=== PATIENT | male | born 1975 ===

== ENCOUNTER 2020-06-20 08:04 | Outpatient (REF) | payer BC, SELFPAY | END 2020-06-20 08:05 | disposition home or self-care (01) | LOC: HO.LAB 08:04 | PROVIDERS: PCP Internal Medicine; Visit Provider Internal Medicine | DX: Z13.89 Encounter for screening for other disorder (principal) ==

== ENCOUNTER 2020-06-22 06:53 | Outpatient (REF) | payer BC, SELFPAY ==
[2020-06-22 11:46] LABS: Hematocrit 42.4 % (42-52); Hemoglobin 14.5 g/dl (14.0-18.0); Mean Corpuscular HGB Conc 34.2 g/dl (31.0-36.0); Mean Corpuscular Hemoglobin 29.5 pg (27.0-33.0); Mean Corpuscular Volume 86.4 fL (80-98); Mean Platelet Volume 10.8 fL (9.4-12.4); Platelet Count 233 X10*3/uL (160-400); Red Blood Count 4.91 X10*6/uL (4.60-5.80); Red Cell Distribution Width 12.8 % (11.0-16.0); White Blood Count 4.1 X10*3/uL (4.8-10.8)
[2020-06-22 11:50] LABS: Glucose Urine UA NEG (NEG); Leukocyte Esterase Urine NEG (NEG); Nitrite Urine NEG (NEG); PH 6.5 (5.0-8.0); Urine Blood NEG (NEG); Urine Ketones NEG (NEG); Urine Protein NEG (NEG-TRACE)
[2020-06-22 11:57] LABS: Appearance Urine CLEAR; Color Urine YELLOW
[2020-06-22 12:11] LABS: Alanine Aminotransferase 30 U/L (0-40); Albumin Level 4.8 g/dL (3.5-5.0); Alkaline Phosphatase 47 U/L (39-117); Anion Gap 14 (12-20); Aspartate Amino Transferase 21 U/L (5-37); Bilirubin Total 0.4 mg/dL (0.0-1.0); Blood Urea Nitrogen 15 mg/dL (9-16); Calcium 9.5 mg/dL (8.4-10.2); Carbon Dioxide 29 mmol/L (22-29); Chloride 103 mmol/L (96-108); Cholesterol 199 mg/dL; Estimated Glomerular Filt Rate > 60; Glucose Fasting 101 mg/dL (60-99); HDL Cholesterol 58 mg/dL; LDL Cholesterol Calculated 120 mg/dl; Potassium 4.8 mmol/L (3.3-5.1); Sodium 141 mmol/L (135-145); Total Protein 7.4 g/dL (6.5-8.0); Triglycerides 108 mg/dL
[2020-06-22 12:15] LABS: TSH reflex Free T4 2.24 uIU/mL (0.32-4.0)
[2020-06-22 12:43] LABS: RBC Urine 0 /HPF (0); WBC Urine 0 /HPF (0-4)
== END 2020-06-22 06:54 | disposition home or self-care (01) ==
LOC: HO.HMGCLDS 06:53
PROVIDERS: PCP Internal Medicine; Visit Provider Internal Medicine
DX: Z00.00 Encounter for general adult medical examination without abnormal findings (principal); Z13.220 Encounter for screening for lipoid disorders; Z13.29 Encounter for screening for other suspected endocrine disorder; Z13.1 Encounter for screening for diabetes mellitus
CPT/HCPCS: 36415; 80053; 80061; 81001; 84443; 85027

== ENCOUNTER 2020-11-02 14:49 | Outpatient (REF) | payer BC, SELFPAY | END 2020-11-02 14:50 | disposition home or self-care (01) | LOC: HO.LAB 14:49 | PROVIDERS: PCP Internal Medicine; Visit Provider Internal Medicine | DX: Z20.822 Contact with and (suspected) exposure to COVID-19 (principal) | CPT/HCPCS: C9803; U0003; U0005 ==

== ENCOUNTER 2022-02-18 12:54 | Outpatient (REF) | payer BC, SELFPAY ==
[2022-02-18 15:05] LABS: Influenza A PCR POSITIVE (Negative); Influenza B PCR NEGATIVE (Negative); Resp Syncy Virus RNA Qual PCR NEGATIVE (Negative); SARS COV2 PCR INHOUSE NEGATIVE (Negative)
== END 2022-02-18 12:55 | disposition home or self-care (01) ==
LOC: HO.LAB 12:54
PROVIDERS: Visit Provider Internal Medicine
DX: Z20.822 Contact with and (suspected) exposure to COVID-19 (principal); R43.9 Unspecified disturbances of smell and taste
CPT/HCPCS: 0241U

== ENCOUNTER 2022-12-19 09:59 | Outpatient (AMB) | payer BC, SELFPAY ==
[2022-12-19 10:07] VITALS: BP 116/80; PULSE 64; BMI 28.3
--- NOTE | 2022-12-19 10:07 | A.OFFVIS_ITS ---
Intake Vital Signs 12/19/22 10:07 Height 5 ft 7 in Weight 180 lb 12.465 oz BMI 28.3 BP 116/80 Blood Pressure Location Lt brachial Position Sitting Pulse 64 Intake Visit Reasons: Colonoscopy Screening Intake Note: Patient presents to in office visit today as a new patient for colonoscopy screening. CC: Patient reports occasional seeing white substance in his stools and occasional acid reflux and heartburn. Denies other GI symptoms today. [employer] Consultant Required: No Accompanied by: Self / Same As Patient Allergies aspirin [ASPIRIN] Allergy (Unknown, Verified 12/19/22 10:10) HIVES [place] And Derivatives Adverse Reaction (Severe, Verified 12/19/22 10:12) Hives juliana Adverse Reaction (Severe, Verified 12/19/22 10:12) Hives HPI Colonoscopy Screening HPI Details 47 year old? male here today for pre col onoscopy screening.? Patient was sent to us by his PCP.? This is his first colonoscopy screening.? Patient denies any gastrointestinal symptoms in the past or at present.? Patient reports that he has been moving his bowels well, however occasionally few times a year for the last 15 years or so he has defecated white pebble like fecal material. Patient denies melena, hematochezia, unintentional weight loss or ribbon like stools. Denies any personal or family history of gastrointestinal disease, colon polyps, or cancer.? Denies history of difficulty with sedation or anesthesia in the past.? Negative for history of sleep apnea.? Denies any history of cardiac, renal, pulmonary, or hepatic disease.?? No history of infectious? diseases like hepatitis A, B, C, HIV or tuberculosis.? Patient is no t on any anticoagulation therapy. 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 Alcohol intake: current Alcohol intake frequency: 0-2 drinks per day Patient Tobacco Use Status: Never used Tobacco Current occupational status: employed Cognitive needs: No Hearing needs: No Vision needs: Yes Review of Systems Const Denies weight gain and Denies weight loss ENT Reports no additional complaints, Denies dysphagia and Denies odynophagia Card Reports no additional complaints Resp Reports no additional complaints GI Denies abdominal pain, Denies belching, Denies melena, Denies bloating, Denies change in bowel habits, Denies dysphagia, Denies excessive flatus, Denies dyspepsia, Reports heartburn (Occasional), Denies diarrhea, Denies loose stools, Denies nausea, Denies odynophagia and Denies vomiting Reports no additional complaints Musc Reports no additional complaints Neuro Reports no additional complaints Psych Reports no additional complaints Endo Reports no additional complaints Physical Exam Vital Signs: Last Vital Signs Pulse 64 12/19/22 10:07 BP 116/80 12/19/22 10:07 BMI result Body Mass Index 28.3 Const General: healthy appearing, no acute distress and well developed Nutritional Appearance: well nourished Orientation/consciousness: patient oriented x3 HEENT Head: Yes normal to inspection, Yes normocephalic and Yes atraumatic Face and sinus: Yes normal facial exam Mouth: Normal oral and palatal mucosa present Throat: Yes posterior oropharynx normal, Yes tonsils normal and Yes uvula midline Eyes General: appearance normal, both eyes and all related structures Neck Neck: Yes normal visual inspection, Yes full ROM and Yes trachea midline Thyroid: Thyroid normal Resp Effort & Inspection: normal respiratory effort, able to speak in complete sentences, no tracheal deviation and symmetric chest movement Auscultation: clear to auscultation bilaterally Cardio Rate: regular rate Heart sounds: S1 normal heart sound present and S2 normal heart sound present GI Inspection: Yes normal to inspection and No distended Palpation (GI): Soft to palpation, not firm, nontender and No hepatosplenomegaly present Auscultation: normal bowel sounds General: Yes no CVA tenderness Back/Spine/Pelvis Back: no CVA tenderness Skin General skin exam: elasticity normal, turgor normal and dry skin Neuro General: patient oriented x3 Psych Appearance: grossly normal Mental Status: mental status grossly normal Speech and movement: Normal speech and movement present Assessment & Plan Assessment & Plan (1) Screen for colon cancer: Code(s): Z12.11 - Encounter for screening for malignant neoplasm of colon (2) GERD (gastroesophageal reflux disease): Code(s): K21.9 - Gastro-esophageal reflux disease without esophagitis Qualifiers: Esophagitis presence: esophagitis presence not specified Qualified Code(s): K21.9 - Gastro-esophageal reflux disease without esophagitis Plan Patient denies any GI, cardiac or respiratory symptoms.? However patient does report occasional acid reflux depending on what he eats. Usually is controlled with diet. Denies any issues with anesthesia in the past.? Denies any history of sleep apnea.? No history infectious diseases in the past or present.? Not on any anticoagulation therapy.? No family or personal history of colon cancer or polyps.? Patient denies melena, hematochezia, unintentional weight loss or ribbon like stools.? Discussed at length the pre-procedure,? prep, diet & med ications as well as what to expect prior, during and after the procedure.?? Stressed the importance of good bowel prep. ?Recommended the use of Vaseline or Calmoseptine OTC & baby wipes with bowel movements to promote comfort.? ?Patient verbalizes understanding and agrees to plan of care.? He was given the opportunity to ask questions and all questions answered.? We will see him after the procedure.? Medications: New bisacodyl (Dulcolax (bisacodyl)) take 2 tabs at noon the day before your colonoscopy 10 mg (2 x 5 mg) PO ONCE 1 day 2 tabs 0RF Z12.11 - Encounter for screening for malignant neoplasm of colon polyethylene glycol 3350 (Miralax) As directed by gastroenterology department at [facility] 238 grams PO ONCE 238 grams 0RF Z12.11 - Encounter for screening for malignant neoplasm of colon Coding Level of Care Code New Pt Level 3 (40763) Diagnoses Screen for colon cancer Z12.11 Gastroesophageal reflux disease, unspecified whether esophagitis present K21.9 Esophagitis presence: esophagitis presence not specified Time Spent (min) 40 Comment 30 minutes spent with patient and additional 10 minutes spent reviewing his records
== END 2022-12-19 10:46 | disposition home or self-care (01) ==
PROVIDERS: PCP Internal Medicine; Visit Provider Nurse Practitioner Family
DX: Z01.818 Encounter for other preprocedural examination (principal); Z12.11 Encounter for screening for malignant neoplasm of colon; K21.9 Gastro-esophageal reflux disease without esophagitis
CPT/HCPCS: S0285

== ENCOUNTER → 2022-12-19 09:59 | Outpatient (BNVA) | payer BC, SELFPAY | PROVIDERS: PCP Internal Medicine; Visit Provider Nurse Practitioner Family ==

== ENCOUNTER 2023-01-23 11:15 | Outpatient (AMB) | payer BC, SELFPAY ==
[2023-01-23 11:17] VITALS: BP 110/70; PULSE 69; O2SAT 98; BMI 28.5
--- NOTE | 2023-01-23 11:17 | A.OFFPC_ITS ---
Vital Signs 01/23/23 11:17 Height 5 ft 7 in Weight 182 lb BMI 28.5 BP 110/70 Blood Pressure Location Lt brachial Position Sitting Pulse 69 Pulse Source Pulse Oximeter Pulse Oximetry (%) 98 Oxygen Delivery Method Room Air Intake Visit Reasons: Right arm pain Intake Note: Pt is here today for a sick visit. Pt c/o R shoulder blade pain that where it started and now the pain travels to his arm and elbow. Pt stated that he gets burning sensation in his arm.Pt also stated that he started having twitching in his R eye for 2 weeks now. Allergies aspirin [ASPIRIN] Allergy (Unknown, Verified 01/23/23 11:20) HIVES [place] And Derivatives Adverse Reaction (Severe, Verified 01/23/23 11:20) Hives juliana Adverse Reaction (Severe, Verified 01/23/23 11:20) Hives Medication List - Last Reconciled 01/23/23 by Debo Santos MD bisacodyl (Dulcolax (bisacodyl)) 10 mg (2 x 5 mg) PO ONCE 1 day cetirizine (Zyrtec) 10 mg PO DAILY PRN epinephrine (EpiPen 2-Rene) 0.3 mg (0.3 mL) IM Q10M PRN polyethylene glycol 3350 (Miralax) 238 grams PO ONCE Tobacco use date assessed: 01/23/23 Dental Screening Dental Screen Date: 01/23/23 Did you have a dental visit in the last 12 months?: Yes Did you have a dental problem in the last 6 months where you did not have access to dental care?: No Was dental information given to patient?: Patient has dentist HPI Right arm pain HPI0 Details Pt c/o R elbow pain, burning like sensation getting progressively worse for the last 2 months. Patient reports pain occasionally radiating to right shoulder and muscle tightness in lower neck and posterior right shoulder. Patient reports pain worse with right elbow movement but also at night. 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 How often do you have a drink containing alcohol?: 4 or more times a week 2. How many drinks containing alcohol do you have on a typical day when you are drinking?: 1 or 2 3. How often do you have six or more drinks on one occasion?: Never Total Score: 4 Review of Systems Const All systems reviewed & are unremarkable except as noted in HPI and below Reports no additional complaints Eyes Reports no additional complaints ENT Reports no additional complaints Card Reports no additional complaints Resp Reports no additional complaints GI Reports no additional complaints Reports no additional complaints Physical exam (Primary Care) Vital Signs: Last Vital Signs Pulse 69 01/23/23 11:17 BP 110/70 01/23/23 11:17 Pulse Ox 98 01/23/23 11:17 Oxygen Delivery Method Room Air 01/23/23 11:17 BMI result Body Mass Index 28.5 Tobacco/Smoking Status: Tobacco use Status Tobacco use date assessed 01/23/23 01/23/23 11:22 Patient Tobacco Use Status Never used Tobacco 01/23/23 11:22 Const General: no acute distress HENMT Face and sinus: Yes normal facial exam Resp Effort & Inspection: normal respiratory effort Auscultation: clear to auscultation bilaterally Cardio Rhythm: regular rhythm Heart sounds: S1 normal heart sound present and S2 normal heart sound present Extrem Other: Tenderness in soft tissue swelling on the right lateral elbow no erythema or warmth, decreased range of motion in the right elbow. Right shoulder with full range of motion, there is slight tenderness in right posterior supraspinatus area, deep tendon reflexes 2+ bilaterally motor strength 5/5 distal and proximal in both upper extremities Assessment and Plan Assessment & Plan (1) Right elbow tendinitis: Code(s): M77.8 - Other enthesopathies, not elsewhere classified Plan: Check x-ray treat with prednisone taper and refer for physical therapy. (2) Annual physical exam: Code(s): Z00.00 - Encounter for general adult medical examination without abnormal findings Plan: Patient will schedule an appointment for physical with fasting labs before (3) Hyperglycemia: Code(s): R73.9 - Hyperglycemia, unspecified Orders: Orders XR elbow RT 2V Today M77.8 - Other enthesopathies, not elsewhere classified Comprehensive [place]. Panel Fast Today Z00.00 - Encounter for general adult medical examination without abnormal findings UA w Microscopic Today Z00.00 - Encounter for general adult medical examination without abnormal findings Hemoglobin A1c Today R73.9 - Hyperglycemia, unspecified PT Evaluation and Treatment Today M77.8 - Other enthesopathies, not elsewhere classified Lipid Panel Today Z00.00 - Encounter for general adult medical examination without abnormal findings Complete Blood Count Auto Diff Today Z00.00 - Encounter for general adult medical examination without abnormal findings Medications: New prednisone 4 tabl qd x 3 days, then 3 tabl qd x3 days, then 2 tabl qd x 3 days, then 1 qd x3 days 30 tabs 0RF prednisone 4 orally daily; 30 tabs 0RF Coding Level of Care Code Est Pt Level 3 (66159) Diagnoses Right elbow tendinitis M77.8 Annual physical exam Z00.00 Hyperglycemia R73.9
== END 2023-01-23 12:13 | disposition home or self-care (01) ==
PROVIDERS: PCP Internal Medicine; Visit Provider Internal Medicine
DX: M77.8 Other enthesopathies, not elsewhere classified (principal); Z00.00 Encounter for general adult medical examination without abnormal findings; R73.9 Hyperglycemia, unspecified
CPT/HCPCS: 99213

== ENCOUNTER 2023-01-23 12:09 | Outpatient (REF) | payer BC, SELFPAY ==
--- NOTE | ~2023-01-23 | XR_ITS ---
EXAMINATION: XR ELBOW, RIGHT CLINICAL INFORMATION: Reason for Exam M77.8 - Other enthesopathies, not elsewhere classified COMPARISON: None. TECHNIQUE: Three views of the elbow FINDINGS: No acute fracture or dislocation. Triceps tendon enthesopathy. No joint effusion or soft tissue abnormality. XR/XR elbow RT 2V IMPRESSION: Triceps tendon enthesopathy.
== END 2023-01-23 12:10 | disposition home or self-care (01) ==
LOC: HO.HMGCX 12:09
PROVIDERS: PCP Internal Medicine; Visit Provider Internal Medicine
DX: M77.8 Other enthesopathies, not elsewhere classified (principal)
CPT/HCPCS: 73070

== ENCOUNTER 2023-04-17 13:00 | Outpatient (RCR) | payer BC, SELFPAY ==
--- NOTE | 2023-03-22 09:56 | MHC.OT.EP ---
[address] [phone] Occupational Therapy Plan of Care Patient Name: Felipe Bates Date of Evaluation: 03/22/23 Diagnosis: Right elbow tendinitis Pain Location: 09/26 right lateral elbow burning resting/general movement Pain Score: 7 Pain Scale Used: Numeric (0 - 10) Aggravating Factors: Bending/straightening, carrying bags, lifting Alleviating Factors: Relief w/ prednisone course, ibuprofen occasionally (does not feel like it makes a difference) Assessment: 48 yo male went to an urgent care visit 01/23/23 in his PCP office w/ c/o pain in right shoulder radiating down to arm. He reports hx of shoulder dislocation years ago and has been doing exercises for strengthening, but has noticed more cramping and pain over the past few months. At this time, he reports primary area of pain is in right lateral elbow. It is tender to palpate epicondyle and he has some discomfort in dorsal forearm and w/ resisted wrist extension. 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 Signs and symptoms are consistent w/ right lateral epicondylitis and I anticipate he will make good recovery w/ course of OT services. Frequency and Duration: The patient will be seen 2x/wk for 4 weeks Short Term Goals: Ind w/ CFB wear Ind w/ joint protection/activity modification techniques Ease w/ end range elbow movements Cream Dumper Goals: Right gross grasp >80lb w/ minimal pain Pt to report ease w/ work tasks (wearing CFB as needed) Pain free resting and w/ sleep Ind w/ progression of strengthening exercises Treatment Plan: Therapeutic Exercise Therapeutic Activity Home Exercise Program Splinting Patient Education Edema Control ADL Training Ultrasound Iontophoresis MHP Cold Packs Soft Tissue Mobilization Kinesiotaping CFB Night orthosis potentially Ionto w/ dexamethasone Electronically Signed By: JANEL Marks/Magdaleno CHT Please Sign and return to therapist. Thank you once again for your referral.
--- NOTE | 2023-04-19 11:36 | MHC.OT.DC ---
[address] [phone] F: [phone] Occupational Therapy Discharge Note Patient Name: Felipe Bates Provider: Debo Santos MD Diagnosis: Right elbow tendinitis Date of Surgery: Date of Evaluation: 03/22/23 Date of Discharge: 04/19/23 Treatments to Date: 8 Cancellations to Date: No Shows to Date: Discharge Status: Achieved Goals Improved Function Independent with HEP Discharge Summary: Felipe was referred to OT w/ acute right lateral epicondylitis. He has progressed well through therapy services and now reports only occasional pain w/ stressful movements/activities. He has good follow through w/ home exercises program, counter force brace wear and joint protection. No further outpatient services needed at this time, I anticipate he will continue to improve w/ time and mindfulness. Electronically Signed By: Jody Grant OTR/L CHT Reviewed/agree with student documentation: N/A Therapist: Please Sign and return to therapist, thank you for your referral.
== END 2023-04-19 11:36 | disposition home or self-care (01) ==
LOC: HO.OT 13:00
PROVIDERS: PCP Internal Medicine; Visit Provider Internal Medicine
DX: M77.8 Other enthesopathies, not elsewhere classified (principal)
CPT/HCPCS: 97033; 97110; 97140; 97165

== ENCOUNTER 2023-05-29 09:25 | Day surgery (SDC) | payer BC, SELFPAY ==
--- NOTE | 2023-05-25 11:42 | P.CONAN_ITS ---
Documented by User: Bianca Garcia NP 05/25/23 11:43 HPI - Anesthesia Eval Consult details Narrative: 48yo M for Colonoscopy [facility] Active Problems Active Problems: All Active Problems (Updated 01/23/23 @ 12:02 by Debo Santos MD) Right elbow tendinitis (Acute) Actinic keratoses (Acute) Upper respiratory tract infection (Acute) Vertigo (Acute) Hives (Acute) Hyperglycemia (Acute) Frequent headaches (Acute) Annual physical exam (Acute) Past Medical History Medical History Hives Hyperglycemia Frequent headaches Annual physical exam Family History Family History (Updated 01/23/23 @ 11:21 by Debra Purvis [facility]) Father Hyperlipidemia Colon polyps Mother HTN (hypertension) Paternal Uncle Cancer Surgical History Surgical History S/P appendectomy H/O vasectomy Social History Social History Household Members Other:: works as [employer] Housing: House Alcohol intake: current Alcohol intake frequency: 0-2 drinks per day Patient Tobacco Use Status: Former Tobacco user Are you DNR?: No Advance Directives: No Advance Directives Information Provided: Yes Current occupational status: employed Cognitive needs: No Hearing needs: No Vision needs: Yes Meds Allergies Allergy/AdvReac Type Severity Reaction Status Date / Time aspirin [ASPIRIN] Allergy Unknown HIVES Verified 01/23/23 11:20 [place] And Derivatives AdvReac Severe Hives Verified 01/23/23 11:20 juliana AdvReac Severe Hives Verified 01/23/23 11:20 Assessment and Plan Assessment Anesthesia Assessment: Chart Reviewed Documented by User: Oksana Peterson MD 05/29/23 09:49 [facility] Past Medical History Medical History Hives Hyperglycemia Frequent headaches Annual physical exam Family History Family History (Updated 01/23/23 @ 11:21 by MANDO Hardy) Father Hyperlipidemia Colon polyps Mother HTN (hypertension) Paternal Uncle Cancer Family history of problems with anesthesia: No Surgical History Surgical History S/P appendectomy H/O vasectomy History of Problems with Anesthesia: No Social History 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 History 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 Alcohol intake: current Alcohol intake frequency: 0-2 drinks per day Patient Tobacco Use Status: Former Tobacco user Are you DNR?: No Advance Directives: No Advance Directives Information Provided: Yes Current occupational status: employed Cognitive needs: No Hearing needs: No Vision needs: Yes Meds Allergies Allergy/AdvReac Type Severity Reaction Status Date / Time aspirin [ASPIRIN] Allergy Unknown HIVES Verified 01/23/23 11:20 [place] And Derivatives AdvReac Severe Hives Verified 01/23/23 11:20 juliana AdvReac Severe Hives Verified 01/23/23 11:20 Exam Airway Mallampati Class: II TM Dist: >3cm Neck ROM: Full Heart: rrr Lungs: cta Assessment and Plan Assessment Anesthesia Assessment: Anesthesia Plan Discussed Final Anesthetic Review Family History of Problems with Anesthesia: No History of Problems with Anesthesia: No NPO: Yes ASA Class: II Final Preanesthetic Review: No Changes in Pt Med Stat, Meds/Allgs Chart Reviewed and Consent Obtained/Reviewed Patient Risk: Low Procedure Risk: Low Anesthetic Plan Anesthetic Plan: MAC: Disposition: Standard PACU
[2023-05-29 09:28] VITALS: BP 146/94; PULSE 76; RESP 20; TEMP 36.1; O2SAT 97; BMI 27.7
--- NOTE | 2023-05-29 09:37 | MHC.SHP ---
Pre-Procedural Eval Section A - 24 Hr Update-Section A only Date of Service: 05/29/23 The patient is an INPATIENT: No The patient has been examined within 24 hours of the surgical procedure. The History & Physical has been completed within 30 days and I have reviewed it.: No Section B - Complete if H&P > 30 days Chief Complaint: Encounter for screening for malignant neoplasm of Relevant Family History (Specify if Yes): Yes Relevant Social History: None Present Medications: see Short Stay Collaborative assessment Medical History: Significant History (Hives Hyperglycemia Frequent headaches ) History of Previous Operations: Relevant previous surgery/procedure and date(s) (S/P appendectomy H/O vasectomy) Allergies: Allergies Allergy/AdvReac Type Severity Reaction Status Date / Time aspirin [ASPIRIN] Allergy Unknown HIVES Verified 01/23/23 11:20 [place] And Derivatives AdvReac Severe Hives Verified 01/23/23 11:20 juliana AdvReac Severe Hives Verified 01/23/23 11:20 Review of Systems Sugical H&P ROS: Negative: Constitution, Cardiovascular, Respiratory and Gastrointestinal Exam Surgical H&P Exam: Normal: Heart, Normal: Lungs, Normal: Extremities and Normal: Abdomen Plan Diagnosis/Plan: Unchanged I have reviewed the history and physical and performed a pertinent physical examination on my patient. No changes have occurred unless specified. Time Spent With Patient Time: Total time managing care of this patient today ____ minutes.
[2023-05-29] MEDS: Lactated Ringers 1,000 ML 100 ML IVCONT (09:44)
--- NOTE | 2023-05-29 09:47 | P.OP_ITS ---
Operative Note Operative Note Date of Service: 05/29/23 Narrative: COLONOSCOPY TILL CECUM WITH BIOPSIES Pre-op diagnosis: Colon cancer screening, Family hx of colon polyps (Dad in his 60's). Post-op diagnosis:? Colon polyp, Diverticulosis, hemorrhoids Endoscopist:? Cyrus Colin MD Anesthesia:?MAC Consent: Indications for the procedure and potential complications of bleeding, perforation, reaction to medications and missed diagnosis were discussed with the patient and informed consent was obtained. Instrument: Olympus PCF H 190 L variable stiffness pediatric colonoscope Monitoring: Vital signs and clinical assessment, intermittent blood pressure monitoring, continuous EKG monitoring, Pulse oximetry and Carbon Dioxide monitoring were done throughout the procedure. Please see anesthesia flowsheet. Colon withdrawl time was 17 minutes. Procedure: The patient was placed in the left lateral decubitis position and pre-procedure medications were administered. After a digital rectal examination of the ano-rectum, the video colonoscope was inserted into the rectum and advanced through the colon to the cecum. The colonoscope was slowly withdrawn in a retrograde panoramic fashion and the colon mucosa was carefully examined including a retroflexed view of the rectum. Findings and interventions are described below. Procedure Difficulty: without difficulty Findings: Terminal Ileum: Not evaluated Cecum: Normal Ascending Colon: Normal Transverse Colon: Normal Descending Colon: Normal Sigmoid Colon: A 3-4 mm diminutive appearing polyp -removed with a cold biopsy. Moderate diverticulosis Rectum: Normal Ano-rectum: Moderate internal hemorrhoids Colon preparation: Excellent. There was scattered undigested vegetable matter which could not be suctioned. [address] Bowel Preparation Scale Right colon; 3 Transverse colon: 3 Left colon; 3 (0 = Unprepared colon segment with mucosa not seen due to solid stool that cannot be cleared. 1 = Portion of mucosa of the colon segment seen, but other areas of the colon segment not well seen due to staining, residual stool and/or opaque liquid. 2 = Minor amount of residual staining, small fragments of stool and/or opaque liquid, but mucosa of colon segment seen well. 3 = Entire mucosa of colon segment seen well with no residual staining, small f ragments of stool or opaque liquid) Impression and Post Procedure Diagnosis: Colonoscopy Findings: One small polyp was removed Moderate diverticulosis seen in the sigmoid colon Moderate hemorrhoids on retroflexed exam. Plan: Pt has a FU appointment on 06/12/23 with Peri Delma, RN PROCEDURE. Repeat Colonoscopy in 5 years if polyps are adenomatous and due to family hx of colon polyps. Above findings were reviewed with the patient and relevant handouts were given and the discharge area.
[2023-05-29 10:30] VITALS: BP 118/72; PULSE 71; RESP 16; TEMP 36.3; O2SAT 99
[2023-05-29 10:45] VITALS: BP 131/90; PULSE 58; RESP 16; TEMP 36.6; O2SAT 100
== END 2023-05-29 11:12 | disposition home or self-care (01) ==
PROVIDERS: PCP Internal Medicine; Visit Provider Internal Medicine Gastroenterology
PROC: 0DJD8ZZ Inspection of Lower Intestinal Tract, Via Natural or Artificial Opening Endoscopic (ICD-10-PCS; CPT 45378; principal; 2023-05-29 10:50)
DX: Z12.11 Encounter for screening for malignant neoplasm of colon (principal); Z83.719 Family history of colon polyps, unspecified; K63.5 Polyp of colon; K57.30 Diverticulosis of large intestine without perforation or abscess without bleeding; K64.8 Other hemorrhoids; K21.9 Gastro-esophageal reflux disease without esophagitis; R51.9 Headache, unspecified; R73.9 Hyperglycemia, unspecified; L50.9 Urticaria, unspecified; Z98.52 Vasectomy status; Z88.8 Allergy status to other drugs, medicaments and biological substances; Z87.891 Personal history of nicotine dependence
CPT/HCPCS: 45380; 88305; J2704

== ENCOUNTER → 2023-05-29 09:25 | Outpatient (BNV) | payer BC, SELFPAY | PROVIDERS: PCP Internal Medicine; Visit Provider Internal Medicine Gastroenterology | DX: Z12.11 Encounter for screening for malignant neoplasm of colon (principal); Z83.719 Family history of colon polyps, unspecified; K63.5 Polyp of colon; K57.30 Diverticulosis of large intestine without perforation or abscess without bleeding | CPT/HCPCS: 45380 ==

== ENCOUNTER 2023-06-12 09:02 | Outpatient (AMB) | payer BC, SELFPAY ==
--- NOTE | 2023-06-12 09:05 | MHC.OFFVIS ---
Intake Vital Signs 06/12/23 09:08 Height 5 ft 7 in Weight 196 lb 3.382 oz BMI 30.7 BP 121/79 Blood Pressure Location Lt brachial Position Sitting Pulse 66 Pulse Source Pulse Oximeter Pulse Oximetry (%) 99 Oxygen Delivery Method Room Air Intake Visit Reasons: S/p colon Intake Note: Patient here today for follow up result of colonoscopy, no concerns. Supply Coordinator Required: No Information Interpreted: non-clinical & clinical Accompanied by: Self / Same As Patient Allergies aspirin [ASPIRIN] Allergy (Unknown, Verified 06/12/23 09:07) HIVES [place] And Derivatives Adverse Reaction (Severe, Verified 06/12/23 09:07) Hives juliana Adverse Reaction (Severe, Verified 06/12/23 09:07) Hives HPI S/p colon HPI Details LAST VISIT Screen for colon cancer GERD (gastroesophageal reflux disease) Plan Patient denies any GI, cardiac or respiratory symptoms.? However patient does report occasional acid reflux depending on what he eats. Usually is controlled with diet. Denies any issues with anesthesia in the past.? Denies any history of sleep apnea.? No history infectious diseases in the past or present.? Not on any anticoagulation therapy.? No family or personal history of colon cancer or polyps.? Patient denies melena, hematochezia, unintentional weight loss or ribbon like stools.? Discussed at length the pre-procedure,? prep, diet & medications as well as what to expect prior, during and after the procedure.?? Stressed the importance of good bowel prep. ?Recommended the use of Vaseline or Calmoseptine OTC & baby wipes with bowel movements to promote comfort.? ?Patient verbalizes understanding and agrees to plan of care.? He was given the opportunity to ask questions and all questions answered.? We will see him after the procedure.? Medications New bisacodyl (Dulcolax (bisacodyl)) take 2 tabs at noon the day before your colonoscopy 10 mg (2 x 5 mg) PO ONCE 1 day 2 tabs 0RF Z12.11 polyethylene glycol 3350 (Miralax) As directed by gastroenterology department at [facility] 238 grams PO ONCE 238 grams 0RF Z12.11 COLONOSCOPY Findings: Terminal Ileum: Not evaluated Cecum: Normal Ascending Colon: Normal Transverse Colon: Normal Descending Colon: Normal Sigmoid Colon: A 3-4 mm diminutive appearing polyp -removed with a cold biopsy. Moderate diverticulosis Rectum: Normal Ano-rectum: Moderate internal hemorrhoids Colon preparation: Excellent. There was scattered undigested vegetable matter which could not be suctioned. [place] Bowel Preparation Scale Right colon; 3 Transverse colon: 3 Left colon; 3 (0 = Unprepared colon segment with mucosa not seen due to solid stool that cannot be cleared. 1 = Portion of mucosa of the colon segment seen, but other areas of the colon segment not well seen due to staining, residual stool and/or opaque liquid. 2 = Minor amount of residual staining, small fragments of stool and/or opaque liquid, but mucosa of colon segment seen well. 3 = Entire mucosa of colon segment seen well with no residual staining, small fragments of stool or opaque liquid) Impression and Post Procedure Diagnosis: Colonoscopy Findings: One small polyp was removed Moderate diverticulosis seen in the sigmoid colon Moderate hemorrhoids on retroflexed exam. Plan: Repeat Colonoscopy in 5 years if polyps are adenomatous and due to family hx of colon polyps. Above findings were reviewed with the patient and relevant handouts were given and the discharge area. PATHOLOGY RESULTS Diagnosis Colon, sigmoid polyp: Polypoid colonic mucosa with no specific change; no adenomatous dysplasia seen. TODAY'S VISIT Patient is here today for follow-up and to discuss colonoscopy results. Patient denies any ill effects from the prep, anesthesia or procedure itself. Patient reports that he is doing well has no abdominal pain or discomfort. Patient had benign polyp without adenomatous dysplasia. His bowels without any if patient does admit occasional acid reflux, however that depends on the food that he. Patient states that it happens in and he takes [id number] Tums. Patient denies, dysphagia or odynophagia. Denies any nausea or vomiting. Denies any other GI concerning symptoms. 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 Alcohol intake: current Alcohol intake frequency: 0-2 drinks per day Patient Tobacco Use Status: Former Tobacco user Current occupational status: employed Cognitive needs: No Hearing needs: No Vision needs: Yes Review of Systems Const Denies weight gain and Denies weight loss ENT Reports no additional complaints, Denies dysphagia and Denies odynophagia Card Reports no additional complaints Resp Reports no additional complaints GI Denies abdominal pain, Denies belching, Denies melena, Denies bloating, Denies change in bowel habits, Denies dysphagia, Denies excessive flatus, Denies dyspepsia, Denies heartburn, Denies diarrhea, Denies loose stools, Denies nausea, Denies odynophagia and Denies vomiting Reports no additional complaints Musc Reports no additional complaints Neuro Reports no additional complaints Psych Reports no additional complaints Endo Reports no additional complaints Physical Exam Vital Signs: Last Vital Signs Pulse 66 06/12/23 09:08 BP 121/79 06/12/23 09:08 Pulse Ox 99 06/12/23 09:08 Oxygen Delivery Method Room Air 06/12/23 09:08 BMI result Body Mass Index 30.7 Const General: healthy appearing, no acute distress and well developed Nutritional Appearance: well nourished Orientation/consciousness: patient oriented x3 Resp Effort & Inspection: normal respiratory effort, able to speak in complete sentences, no tracheal deviation and symmetric chest movement Auscultation: clear to auscultation bilaterally Cardio Rate: regular rate GI Inspection: Yes normal to inspection and No distended Palpation (GI): Soft to palpation, not firm, nontender and No hepatosplenomegaly present Auscultation: normal bowel sounds General: Yes no CVA tenderness Back/Spine/Pelvis Back: no CVA tenderness Skin General skin exam: elasticity normal, turgor normal and dry skin Neuro General: patient oriented x3 Psych Appearance: grossly normal Mental Status: mental status grossly normal Assessment & Plan Assessment & Plan (1) Status post colonoscopy: Code(s): Z98.890 - Other specified postprocedural states (2) GERD (gastroesophageal reflux disease): Code(s): K21.9 - Gastro-esophageal reflux disease without esophagitis Qualifiers: Esophagitis presence: esophagitis presence not specified Qualified Code(s): K21.9 - Gastro-esophageal reflux disease without esophagitis Plan Colonoscopy will be repeated in years, sooner on as needed basis. Patient had benign polyps as mentioned above in HPI, however due to family history of CRC patient will need to repeat colonoscopy in 5 years. Patient can take Pepcid for acid reflux as needed. Patient was encouraged to continue avoiding dietary triggers and late night snacking. Staying upright for minimum 3 hours after meals discussed with patient. Patient will follow-up in the office on as needed basis. He is agreeable to this plan and verbalizes understanding of instructions. He was given the opportunity to ask questions and all questions answered. Thank you for allowing me to participate in his care Medications: New famotidine (Pepcid) 20 mg PO DAILY PRN 30 tabs 3RF acid reflux K21.9 - Gastro-esophageal reflux disease without esophagitis Coding Level of Care Code Est Pt Level 3 (05573) Diagnoses Status post colonoscopy Z98.890 Gastroesophageal reflux disease, unspecified whether esophagitis present K21.9 Esophagitis presence: esophagitis presence not specified Time Spent (min) 25 Comment 15 minutes spent with patient and additional 10 minutes spent reviewing his records
[2023-06-12 09:08] VITALS: BP 121/79; PULSE 66; O2SAT 99; BMI 30.7
== END 2023-06-12 09:59 | disposition home or self-care (01) ==
PROVIDERS: PCP Internal Medicine; Visit Provider Nurse Practitioner Family
DX: Z98.890 Other specified postprocedural states (principal); K21.9 Gastro-esophageal reflux disease without esophagitis
CPT/HCPCS: 99213

== ENCOUNTER → 2023-06-12 09:02 | Outpatient (BNVA) | payer BC, SELFPAY | PROVIDERS: PCP Internal Medicine; Visit Provider Nurse Practitioner Family ==

== ENCOUNTER 2023-07-22 07:14 | Outpatient (REF) | payer BC, SELFPAY ==
[2023-07-22 11:10] LABS: MANUAL DIFF FLAG NO
[2023-07-22 11:16] LABS: Basophils Percent Auto 0.5 % (0-2); Eosinophils Absolute Auto 0.3 X10*3/uL (0.0-0.4); Eosinophils Percent Auto 6.6 % (0-4); Hematocrit 39.6 % (42.0-52.0); Hemoglobin 13.9 g/dl (14.0-18.0); Imm Gran Abs Auto 0.02 X10*3/uL (0.00-0.03); Imm Gran Pct Auto 0.5 % (0.0-0.4); Lymphocytes Absolute Auto 1.7 X10*3/uL (1.2-4.9); Lymphocytes Percent Auto 44.3 % (20-40); Mean Corpuscular HGB Conc 35.1 g/dl (31.0-36.0); Mean Corpuscular Volume 85.5 fL (80.0-98.0); Mean Platelet Volume 10.4 fL (9.4-12.4); Monocytes Absolute Auto 0.4 X10*3/uL (0.1-1.2); Monocytes Percent Auto 9.8 % (2-11); Neutrophils Absolute Auto 1.5 x10*3/uL (2.0-8.3); Neutrophils Percent Auto 38.3 % (45-73); Platelet Count 274 X10*3/uL (160-400); Red Blood Count 4.63 X10*6/uL (4.60-5.80); Red Cell Distribution Width 12.8 % (11.0-16.0); White Blood Count 3.8 X10*3/uL (4.8-10.8)
[2023-07-22 11:20] LABS: Appearance Urine Clear; Color Urine Yellow; Glucose Urine UA Negative (Negative); Leukocyte Esterase Urine Negative (Negative); Nitrite Urine Negative (Negative); PH 6.5 (5.0-9.0); Urine Blood Negative (Negative); Urine Ketones Negative (Negative); Urine Protein Negative (Neg-Trace)
[2023-07-22 11:25] LABS: Bacteria Urine None Seen (None Seen); Hyaline Casts Urine 0-2 /LPF (0-2); RBC Urine 0-2 /HPF (0-2); Squamous Epithelial Cell Urine 0-2 /HPF (0-2); WBC Urine 0-5 /HPF (0-5)
[2023-07-22 11:32] LABS: Estimated Average Glucose 111 mg/dL; Hemoglobin A1c % 5.5 % (<6.0)
[2023-07-22 11:59] LABS: Alanine Aminotransferase 29 U/L (0-40); Albumin Level 4.6 g/dL (3.5-5.0); Alkaline Phosphatase 53 U/L (39-117); Anion Gap 14 (12-20); Aspartate Amino Transferase 25 U/L (5-37); Bilirubin Total 0.5 mg/dL (0.0-1.0); Blood Urea Nitrogen 13 mg/dL (9-16); Calcium 10.4 mg/dL (8.4-10.2); Carbon Dioxide 26 mmol/L (22-29); Chloride 106 mmol/L (96-108); Cholesterol 168 mg/dL (<200); Estimated Glomerular Filt Rate > 60; Glucose Fasting 95 mg/dL (60-99); HDL Cholesterol 49 mg/dL (>40); LDL Cholesterol Calculated 96 mg/dL (<100); Potassium 4.4 mmol/L (3.3-5.1); Sodium 142 mmol/L (135-145); Total Protein 7.3 g/dL (6.5-8.0); Triglycerides 119 mg/dL (<150)
== END 2023-07-22 07:15 | disposition home or self-care (01) ==
LOC: HO.HMGCLDS 07:14
PROVIDERS: PCP Internal Medicine; Visit Provider Internal Medicine
DX: Z00.00 Encounter for general adult medical examination without abnormal findings (principal); R73.9 Hyperglycemia, unspecified
CPT/HCPCS: 36415; 80053; 80061; 81001; 83036; 85025

== ENCOUNTER 2023-07-24 12:07 | Outpatient (AMB) | payer BC, SELFPAY ==
[2023-07-24 12:27] VITALS: BP 112/84; PULSE 65; O2SAT 97; BMI 28.7
--- NOTE | 2023-07-24 12:27 | A.OFFPC_ITS ---
Vital Signs 07/24/23 12:27 Height 5 ft 7 in Weight 183 lb 4 oz BMI 28.7 BP 112/84 Blood Pressure Location Rt brachial Position Sitting Pulse 65 Pulse Source Pulse Oximeter Pulse Oximetry (%) 97 Oxygen Delivery Method Room Air Intake Visit Reasons: Annual PE Intake Note: Pt is here today for PE. Allergies aspirin [ASPIRIN] Allergy (Unknown, Verified 07/24/23 13:01) HIVES [place] And Derivatives Adverse Reaction (Severe, Verified 07/24/23 13:01) Hives juliana Adverse Reaction (Severe, Verified 07/24/23 13:01) Hives Medication List - Last Reconciled 07/24/23 by Debo Santos MD cetirizine (Zyrtec) 10 mg PO DAILY PRN epinephrine (EpiPen 2-Rene) 0.3 mg (0.3 mL) IM Q10M PRN famotidine (Pepcid) 20 mg PO DAILY PRN Tobacco use date assessed: 07/24/23 Dental Screening Dental Screen Date: 07/24/23 Did you have a dental visit in the last 12 months?: Yes Did you have a dental problem in the last 6 months where you did not have access to dental care?: No Was dental information given to patient?: Patient has dentist HPI Annual PE HPI Details Patient presents for physical but complains of persistent right elbow pain 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 He tried physical therapy with only partial relief. 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 1. Little interest or pleasure in doing things: not at all 2. Feeling down, depressed, or hopeless: not at all 3. Trouble falling or staying asleep, or sleeping too much: not at all 4. Feeling tired or having little energy: not at all 5. Poor appetite or overeating: not at all 6. Feeling bad about yourself - or that you are a failure or have let yourself or your family down: not at all 7. Trouble concentrating on things, such as reading the newspaper or watching television: not at all 8. Moving or speaking so slowly that other people could have noticed. Or the opposite - being so fidgety or restless that you have been moving around a lot more than usual: not at all 9. Thoughts that you would be better off or of hurting yourself in some way: not at all Total score: 0 Depression Screening Interpretation: Negative Depression Screening Done: Yes 05425 - PHQ-9 Billing: Yes Source: Developed by Drs. Steve Lloyd, Danielle Camacho, Tj Green and colleagues, with an educational maxi from [employer]. Thrive Questionnaire Date Thrive assessed: 07/24/23 I am a: Patient What is your living situation today?: I have a steady place to live Within the past 12 months, did the food you bought not last and you didn't have the money to get more?: Never true Within the past 12 months, did you worry whether your food would run out before you got money to buy more?: Never true Do you have trouble paying for medicines?: No Do you have trouble getting transportation to medical appointments?: No Do you have trouble paying your heating and electricity bill?: No Do you have trouble taking care of your child, family member or friend?: No Do you have trouble with day-to-day activities such as bathing, preparing meals, shopping, managing finances, etc.?: No Are you currently unemployed and looking for a job?: No Are you interested in more education?: No Please select the resources that you would like help with: None Currently or been in a relationship where the following occur: no concerns reported THRIVE Score: 0 AUDIT C Alcohol Use Questionnaire (AUDIT-C) 1. How often do you have a drink containing alcohol?: Monthly or less 2. How many drinks containing alcohol do you have on a typical day when you are drinking?: 1 or 2 3. How often do you have six or more drinks on one occasion?: Never Total Score: 1 Score Reviewed/Action Taken: Yes LYNN-7 AMB Questionnaire LYNN-7 Date LYNN - 7 assessed: 07/24/23 Feeling nervous, anxious, or on edge: 0 = Not at all Not being able to stop or control worryin = Not at all Worrying too much about different things: 0 = Not at all Trouble relaxin = Not at all Being so restless that it is hard to sit still: 0 = Not at all Becoming easily annoyed or irritable: 0 = Not at all Feeling afraid as if something awful might happen: 0 = Not at all Total LYNN-7 score (0-4 normal; 5-9 mild; 10-14 moderate; 15-21 severe): 0 Source: Developed by Drs. Steve Lloyd, Danielle Camacho, Tj Green and colleagues, with an educational maxi from [employer]. LYNN-7 Assessment Billing LYNN-7 Assessment Tool: LYNN-7 Assessment 00157 Review of Systems Const All systems reviewed & are unremarkable except as noted in HPI and below ENT Reports no additional complaints Card Reports no additional complaints Resp Reports no additional complaints GI Reports no additional complaints Reports no additional complaints Physical exam (Primary Care) Vital Signs: Last Vital Signs Pulse 65 07/24/23 12:27 BP 112/84 07/24/23 12:27 Pulse Ox 97 07/24/23 12:27 Oxygen Delivery Method Room Air 07/24/23 12:27 BMI result Body Mass Index 28.7 Tobacco/Smoking Status: Tobacco use Status Tobacco use date assessed 07/24/23 07/24/23 13:04 Patient Tobacco Use Status Former Tobacco user 07/24/23 12:29 e-Cigarette/Vaping Use Never Used 07/24/23 13:04 PHQ-9: PHQ-9 Score PHQ-9: Total score 0 07/24/23 13:04 Depression Screening Interpretation: Negative Thrive Assessment: Date of Thrive Assessment Date Thrive assessed 07/24/23 07/24/23 13:04 Currently or been in a relationship where the following occur: no concerns reported Const General: no acute distress HENMT Head: Yes normal to inspection Face and sinus: Yes normal facial exam Eyes General: appearance normal, both eyes and all related structures Neck Neck: Yes no lymphadenopathy and Yes supple Resp Effort & Inspection: normal respiratory effort Auscultation: clear to auscultation bilaterally Cardio Rhythm: regular rhythm Heart sounds: S1 normal heart sound present and S2 normal heart sound present GI Inspection: Yes normal to inspection Palpation (GI): Soft to palpation Percussion: Yes normal to percussion Auscultation: normal bowel sounds Assessment and Plan Assessment & Plan (1) Anemia: Code(s): D64.9 - Anemia, unspecified Plan: Check iron studies and B12, patient had negative colonoscopy (2) Right elbow tendinitis: Code(s): M77.8 - Other enthesopathies, not elsewhere classified Plan: For persistent right elbow tendinitis will be referred to orthopedics for cortisone injection (3) Annual physical exam: Code(s): Z00.00 - Encounter for general adult medical examination without abnormal findings Plan: Well-balanced diet regular physical activity discussed with the patient return in 1 year Orders: Orders Vitamin B12 Today D64.9 - Anemia, unspecified Comprehensive [place]. Panel Fast 1 Year R73.9 - Hyperglycemia, unspecified, Z00.00 - Encounter for general adult medical examination without abnormal findings Complete Blood Count Auto Diff 1 Year R73.9 - Hyperglycemia, unspecified, Z00.00 - Encounter for general adult medical examination without abnormal findings UA w Microscopic 1 Year R73.9 - Hyperglycemia, unspecified, Z00.00 - Encounter for general adult medical examination without abnormal findings IRON PROFILE Today D64.9 - Anemia, unspecified Lipid Panel 1 Year R73.9 - Hyperglycemia, unspecified, Z00.00 - Encounter for general adult medical examination without abnormal findings PSA,Total (Free>4and<10) 1 Year R73.9 - Hyperglycemia, unspecified, Z00.00 - Encounter for general adult medical examination without abnormal findings Referrals Orthopedics Referral M77.8 - Other enthesopathies, not elsewhere classified Coding Level of Care Code Est Pt Prev Care 40-64y(94877) Diagnoses Anemia D64.9 Right elbow tendinitis M77.8 Annual physical exam Z00.00 Additional Codes LYNN-7 Assessment Billing - LYNN-7 Assessment Tool: LYNN-7 Assessment 15571 ([id number])
== END 2023-07-24 13:32 | disposition home or self-care (01) ==
PROVIDERS: PCP Internal Medicine; Visit Provider Internal Medicine
DX: D64.9 Anemia, unspecified (principal); M77.8 Other enthesopathies, not elsewhere classified; Z00.00 Encounter for general adult medical examination without abnormal findings
CPT/HCPCS: 99396

== ENCOUNTER 2023-07-24 13:35 | Outpatient (REF) | payer BC, SELFPAY ==
[2023-07-24 16:57] LABS: Iron 126 mcg/dL (45-160); Percent Iron Saturation 52 % (15-50); Total Iron Binding Capacity 242 mcg/dL (228-428); Unsaturated Iron Binding 116 ug/dL
[2023-07-24 17:19] LABS: Vitamin B12 527 pg/mL (200-900)
== END 2023-07-24 13:36 | disposition home or self-care (01) ==
LOC: HO.HMGCLDS 13:35
PROVIDERS: PCP Internal Medicine; Visit Provider Internal Medicine
DX: D64.9 Anemia, unspecified (principal)
CPT/HCPCS: 36415; 82607; 83540

== ENCOUNTER 2023-08-21 09:08 | Outpatient (AMB) | payer BC, SELFPAY ==
--- NOTE | 2023-08-21 09:16 | MHC.OFFVIS ---
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 Patient reports his pain has been present since last summer. States completing OT which has provided him with some relief. He has pain with grabbing items and he describes an electrical burning sensation that radiates down his arm from his elbow. 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 No EMG. Finds some relief with ibuprofen. Allergies aspirin [ASPIRIN] Allergy (Unknown, Verified 08/21/23 09:24) HIVES [place] And Derivatives Adverse Reaction (Severe, Verified 08/21/23 09:24) Hives juliana Adverse Reaction (Severe, Verified 08/21/23 09:24) Hives Medication List - Last Reconciled 08/21/23 by Zuhair Landaverde PA-C cetirizine (Zyrtec) 10 mg PO DAILY PRN epinephrine (EpiPen 2-Rene) 0.3 mg (0.3 mL) IM Q10M PRN famotidine (Pepcid) 20 mg PO DAILY PRN ibuprofen 800 mg PO Q8H PRN 30 days HPI HPI OVERCOILER- Right elbow tendinitis: Details: 48-year-old 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 male who presents to the office today for evaluation of right elbow pain since last summer. He currently states he has electrical burning pain in his elbow that radiates down to his arm. His pain is aggravated with grabbing and twisting motions. He denies any numbness or tingling. He has attended occupational therapy which provided him relief. He finds mild relief with ibuprofen. 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 Alcohol intake: current Alcohol intake frequency: 0-2 drinks per day Patient Tobacco Use Status: Former Tobacco user e-Cigarette/Vaping Use: Never Used service: No Current occupational status: employed 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, 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 Cognitive needs: No Hearing needs: No Vision needs: Yes Review of Systems Const All systems reviewed & are unremarkable except as noted in HPI and below Physical Exam Vital Signs: BMI result Body Mass Index 28.7 Const General: cooperative, healthy appearing, comfortable, no acute distress, well developed and alert Orientation/consciousness: patient oriented x3 HEENT Head: Yes normal to inspection, Yes normocephalic and Yes atraumatic Eyes General: appearance normal, both eyes and all related structures Resp Effort & Inspection: normal respiratory effort and able to speak in complete sentences Cardio Rate: regular rate Peripheral pulses: Peripheral pulses 2+ throughout GI Palpation (GI): Soft to palpation Skin Lesions: no lesions Rashes: no rashes Neuro General: patient oriented x3 Extrem Other: Right elbow: Skin intact. No erythema or swelling. ROM full without pain. Tenderness over the lateral epicondyle and pain with resisted wrist extension. NVI. Assessment & Plan Assessment & Plan (1) Right elbow tendinitis: Code(s): M77.8 - Other enthesopathies, not elsewhere classified Category: Medical Plan We discussed options today which include steroid injection. They did consent to move forward with the right elbow injection, which was tolerated well. I recommended rest, ice and elevation and OTC anti-inflammatories PRN for discomfort. I also educated the patient on modification of activities. He was also given a prescription of ibuprofen to take three times a day for 2 weeks to help with his flareups. If symptoms persist or worsens over the next 6-8 weeks, patient will contact the office, otherwise follow-up as needed. Medications: New ibuprofen 800 mg PO Q8H PRN 90 tabs 3RF pain 30 days S52.209D - Unspecified fracture of shaft of unspecified ulna, subsequent encounter for closed fracture with routine healing Patient Instructions: Scribed for Zuhair Landaverde PA-C, by Solitario Soliz biomedical manager, on 08/21/2023 at 9:00 AM EST.? I, Zuhair Landaverde PA-C, have personally reviewed and agree with the information entered by the scribe. Coding Level of Care Code New Pt Level 3 (92715) Diagnoses Right elbow tendinitis M77.8
[2023-08-21 09:22] VITALS: BMI 28.7
== END 2023-08-21 09:51 | disposition home or self-care (01) ==
PROVIDERS: PCP Internal Medicine; Visit Provider Physician Assistant
DX: M77.8 Other enthesopathies, not elsewhere classified (principal)
CPT/HCPCS: 20550; 99203

== ENCOUNTER → 2023-08-21 09:08 | Outpatient (BNVA) | payer BC, SELFPAY | PROVIDERS: PCP Internal Medicine; Visit Provider Physician Assistant | DX: M77.8 Other enthesopathies, not elsewhere classified (principal) | CPT/HCPCS: 20550; J1100 ==

== ENCOUNTER 2023-08-25 09:43 | Outpatient (AMB) | payer BC, SELFPAY ==
[2023-08-25 09:50] VITALS: BP 108/70; PULSE 74; O2SAT 99; BMI 28.2
--- NOTE | 2023-08-25 09:50 | MHC.PC.OV ---
Vital Signs 08/25/23 09:50 Height 5 ft 7 in Weight 180 lb BMI 28.2 BP 108/70 Blood Pressure Location Lt brachial Position Sitting Pulse 74 Pulse Source Pulse Oximeter Pulse Oximetry (%) 99 Oxygen Delivery Method Room Air Intake Visit Reasons: vomited blood x1 Intake Note: Pt is here today for sick visit. Pt states that he vomited blood 2 days ago. Allergies aspirin [ASPIRIN] Allergy (Unknown, Verified 08/25/23 09:50) HIVES [place] And Derivatives Adverse Reaction (Severe, Verified 08/25/23 09:50) Hives juliana Adverse Reaction (Severe, Verified 08/25/23 09:50) Hives Medication List - Last Reconciled 08/25/23 by Debo Santos MD cetirizine (Zyrtec) 10 mg PO DAILY PRN epinephrine (EpiPen 2-Rene) 0.3 mg (0.3 mL) IM Q10M PRN ibuprofen 800 mg PO Q8H PRN 30 days omeprazole 20 mg PO DAILY Tobacco use date assessed: 07/24/23 Dental Screening Dental Screen Date: 07/24/23 HPI vomited blood x1 HPI Details Pt c/o dysphagia and odynophagia to solids getting progressively worse over last few months. He has been having GERD symptoms on and off for years. Pt vomited fresh blood while eating 3 days ago. he denies any recurrent episodes since then. 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 Steve Lloyd, Danielle Camacho, Tj Green and colleagues, with an educational maxi from [employer]. Review of Systems Const All systems reviewed & are unremarkable except as noted in HPI and below ENT Reports no additional complaints Card Reports no additional complaints Resp Reports no additional complaints GI Reports no additional complaints Reports no additional complaints Physical exam (Primary Care) Vital Signs: Last Vital Signs Pulse 74 08/25/23 09:50 BP 108/70 08/25/23 09:50 Pulse Ox 99 08/25/23 09:50 Oxygen Delivery Method Room Air 08/25/23 09:50 BMI result Body Mass Index 28.2 Tobacco/Smoking Status: Tobacco use Status Tobacco use date assessed 07/24/23 08/25/23 09:51 Patient Tobacco Use Status Former Tobacco user 08/25/23 09:51 e-Cigarette/Vaping Use Never Used 08/25/23 09:51 Thrive Assessment: Date of Thrive Assessment Date Thrive assessed 07/24/23 08/25/23 09:51 Const General: no acute distress HENMT Face and sinus: Yes normal facial exam Eyes General: appearance normal, both eyes and all related structures Neck Neck: Yes supple Resp Effort & Inspection: normal respiratory effort Auscultation: clear to auscultation bilaterally Cardio Rhythm: regular rhythm Heart sounds: S1 normal heart sound present and S2 normal heart sound present GI Inspection: Yes normal to inspection Palpation (GI): Soft to palpation Percussion: Yes normal to percussion Auscultation: normal bowel sounds Assessment and Plan Assessment & Plan (1) Anemia: Code(s): D64.9 - Anemia, unspecified (2) Odynophagia: Code(s): R13.10 - Dysphagia, unspecified (3) GERD (gastroesophageal reflux disease): Code(s): K21.9 - Gastro-esophageal reflux disease without esophagitis Orders: Orders Complete Blood Count Auto Diff Today D64.9 - Anemia, unspecified Referrals Gastroenterology Referral K21.9 - Gastro-esophageal reflux disease without esophagitis, R13.10 - Dysphagia, unspecified Medications: New omeprazole 20 mg PO DAILY 90 caps 0RF Discontinued famotidine (Pepcid) Discontinued Reason: Doctor's Order 20 mg PO DAILY PRN 30 tabs 3RF acid reflux K21.9 - Gastro-esophageal reflux disease without esophagitis Coding Level of Care Code Est Pt Level 3 (84683) Diagnoses Anemia D64.9 Odynophagia R13.10 GERD (gastroesophageal reflux disease) K21.9
== END 2023-08-25 15:15 | disposition home or self-care (01) ==
PROVIDERS: PCP Internal Medicine; Visit Provider Internal Medicine
DX: D64.9 Anemia, unspecified (principal); R13.10 Dysphagia, unspecified; K21.9 Gastro-esophageal reflux disease without esophagitis
CPT/HCPCS: 99213

== ENCOUNTER 2023-08-25 10:44 | Outpatient (REF) | payer BC, SELFPAY ==
[2023-08-25 13:11] LABS: MANUAL DIFF FLAG NO
[2023-08-25 13:32] LABS: Basophils Percent Auto 0.7 % (0-2); Eosinophils Absolute Auto 0.2 X10*3/uL (0.0-0.4); Eosinophils Percent Auto 4.2 % (0-4); Hematocrit 39.5 % (42.0-52.0); Hemoglobin 13.9 g/dl (14.0-18.0); Imm Gran Abs Auto 0.02 X10*3/uL (0.00-0.03); Imm Gran Pct Auto 0.5 % (0.0-0.4); Lymphocytes Absolute Auto 1.6 X10*3/uL (1.2-4.9); Mean Corpuscular HGB Conc 35.2 g/dl (31.0-36.0); Mean Corpuscular Hemoglobin 29.9 pg (27.0-33.0); Mean Corpuscular Volume 84.9 fL (80.0-98.0); Mean Platelet Volume 10.5 fL (9.4-12.4); Monocytes Absolute Auto 0.4 X10*3/uL (0.1-1.2); Neutrophils Absolute Auto 2.1 x10*3/uL (2.0-8.3); Neutrophils Percent Auto 48.6 % (45-73); Platelet Count 245 X10*3/uL (160-400); Red Blood Count 4.65 X10*6/uL (4.60-5.80); Red Cell Distribution Width 12.7 % (11.0-16.0); White Blood Count 4.3 X10*3/uL (4.8-10.8)
== END 2023-08-25 10:45 | disposition home or self-care (01) ==
LOC: HO.HMGCLDS 10:44
PROVIDERS: PCP Internal Medicine; Visit Provider Internal Medicine
DX: D64.9 Anemia, unspecified (principal)
CPT/HCPCS: 36415; 85025

== ENCOUNTER 2023-10-10 11:58 | Outpatient (AMB) | payer BC, SELFPAY ==
--- NOTE | 2023-10-10 12:08 | MHC.OFFVIS ---
Vital Signs 10/10/23 12:16 Height 5 ft 7 in Weight 179 lb 0.246 oz BMI 28.0 BP 124/82 Blood Pressure Location Lt brachial Position Sitting Pulse 58 Pulse Source Pulse Oximeter Pulse Oximetry (%) 97 Oxygen Delivery Method Room Air Intake Visit Reasons: GERD, Dysphagia. Pt req FUV Intake Note: Felipe presents in office today for a requested FUV. CC; Pt reports that they have intermittent GERD sx. Pt has recently started taking their PPI again which has been helping with the management of their sx. Pt states that he had experienced hematemesis previously. Pt has not experienced this since prior to his last visit with his PCP. Pt believes that they would benefit from an egd s/p. Pt reports that they recently had a colo s/p in Apr/May. District Adviser Required: No Allergies aspirin [ASPIRIN] Allergy (Unknown, Verified 10/10/23 12:14) HIVES [place] And Derivatives Adverse Reaction (Severe, Verified 10/10/23 12:14) Hives juliana Adverse Reaction (Severe, Verified 10/10/23 12:14) Hives HPI HPI GERD, Dysphagia. Pt req FUV: Details: LAST VISIT: Status post colonoscopy GERD (gastroesophageal reflux disease) Plan Colonoscopy will be repeated in years, sooner on as needed basis. Patient had benign polyps as mentioned above in HPI, however due to family history of CRC patient will need to repeat colonoscopy in 5 years. Patient can take Pepcid for acid reflux as needed. Patient was encouraged to continue avoiding dietary triggers and late night snacking. Staying upright for minimum 3 hours after meals discussed with patient. Patient will follow-up in the office on as needed basis. He is agreeable to this plan and verbalizes understanding of instructions. He was given the opportunity to ask questions and all questions answered. ? Thank you for allowing me to participate in his care Medications New famotidine (Pepcid) 20 mg PO DAILY PRN 30 tabs 3RF acid reflux K21.9 TODAY'S VISIT Patient is here today for requested visit. Patient reports that in the last couple months his symptoms of acid reflux are getting worse. Patient was taking on and off Pepcid in the past states that it was helping and his symptoms went away so he stopped. Patient's PCP put him on omeprazole and he has been taking it in the past few weeks last dose this morning. Patient states that he feels like it helps, however he continues to have epigastric pain postprandially with occasional nausea and reflux. Patient reports one episode of dry heaving, followed by vomiting with blood. Patient reports that he is moving his bowels without any issues. Denies any melena, hematochezia. Denies any family history of stomach or esophageal cancer. 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 Alcohol intake: current Alcohol intake frequency: 0-2 drinks per day Patient Tobacco Use Status: Former Tobacco user e-Cigarette/Vaping Use: Never Used service: No Current occupational status: employed 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, 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 Cognitive needs: No Hearing needs: No Vision needs: Yes Review of Systems Const Denies weight gain and Denies weight loss ENT Reports no additional complaints, Denies dysphagia and Denies odynophagia Card Reports no additional complaints Resp Reports no additional complaints GI Reports abdominal pain (Epigastric), Denies belching, Denies melena, Denies bloating, Denies change in bowel habits, Denies dysphagia, Denies excessive flatus, Reports dyspepsia, Reports heartburn, Denies diarrhea, Denies loose stools, Reports nausea, Denies odynophagia and Denies vomiting Reports no additional complaints Musc Reports no additional complaints Neuro Reports no additional complaints Psych Reports no additional complaints Endo Reports no additional complaints Physical Exam Vital Signs: Last Vital Signs Pulse 58 10/10/23 12:16 BP 124/82 10/10/23 12:16 Pulse Ox 97 10/10/23 12:16 Oxygen Delivery Method Room Air 10/10/23 12:16 BMI result Body Mass Index 28.0 Const General: healthy appearing, no acute distress and well developed Nutritional Appearance: well nourished Orientation/consciousness: patient oriented x3 Resp Effort & Inspection: normal respiratory effort, able to speak in complete sentences, no tracheal deviation and symmetric chest movement Auscultation: clear to auscultation bilaterally Cardio Rate: regular rate GI Inspection: Yes normal to inspection and No distended Palpation (GI): Soft to palpation, not firm, nontender and No hepatosplenomegaly present Auscultation: normal bowel sounds General: Yes no CVA tenderness Back/Spine/Pelvis Back: no CVA tenderness Skin General skin exam: elasticity normal, turgor normal and dry skin Neuro General: patient oriented x3 Psych Appearance: grossly normal Mental Status: mental status grossly normal Assessment & Plan Assessment & Plan (1) GERD (gastroesophageal reflux disease): Code(s): K21.9 - Gastro-esophageal reflux disease without esophagitis Category: Medical Qualifiers: Esophagitis presence: esophagitis presence not specified Qualified Code(s): K21.9 - Gastro-esophageal reflux disease without esophagitis (2) Nausea and vomiting in adult: Code(s): R11.2 - Nausea with vomiting, unspecified (3) Postprandial epigastric pain: Code(s): R10.13 - Epigastric pain Plan Patient will start taking pantoprazole daily. Avoid dietary triggers and late night snacking. Patient will be sent for upper GI series as well as for endoscopy to rule out esophagitis, gastritis, duodenitis, Vázquez's, gastric or peptic ulcers, H pylori. Patient denies any issues with anesthesia in the past. No history of sleep apnea. Not on any anticoagulation medication. Patient did well with anesthesia during colonoscopy this year. Patient will follow-up after the procedure. He will call if pantoprazole will not be working for him. He is agreeable to this plan and verbalizes understanding of instructions. He was given the opportunity to ask questions and all questions answered. Thank you for allowing me to participate in his care Orders: Orders [place] upper GI series 10/10/23 K21.9 - Gastro-esophageal reflux disease without esophagitis Medications: New pantoprazole take one tablet half an hour before breakfast 40 mg PO DAILY 30 tabs 2RF K21.9 - Gastro-esophageal reflux disease without esophagitis pantoprazole take one tablet half an hour before breakfast 40 mg PO DAILY 30 tabs 2RF K21.9 - Gastro-esophageal reflux disease without esophagitis Coding Level of Care Code Est Pt Level 4 (03511) Diagnoses Gastroesophageal reflux disease, unspecified whether esophagitis present K21.9 Esophagitis presence: esophagitis presence not specified Nausea and vomiting in adult R11.2 Postprandial epigastric pain R10.13 Time Spent (min) 35 Comment 10 minutes spent with patient and additional 15 minutes spent reviewing his records
[2023-10-10 12:16] VITALS: BP 124/82; PULSE 58; O2SAT 97; BMI 28.0
== END 2023-10-10 13:19 | disposition home or self-care (01) ==
PROVIDERS: PCP Internal Medicine; Visit Provider Nurse Practitioner Family
DX: K21.9 Gastro-esophageal reflux disease without esophagitis (principal); R11.2 Nausea with vomiting, unspecified; R10.13 Epigastric pain
CPT/HCPCS: 99214

== ENCOUNTER → 2023-10-10 11:58 | Outpatient (BNVA) | payer BC, SELFPAY | PROVIDERS: PCP Internal Medicine; Visit Provider Nurse Practitioner Family ==

== ENCOUNTER 2023-10-19 09:00 | Day surgery (SDC) | payer BC, SELFPAY ==
--- NOTE | 2023-10-18 10:03 | P.CONAN_ITS ---
Documented by User: Bianca Garcia NP 10/18/23 10:03 HPI - Anesthesia Eval Consult details Narrative: 48yo M for Upper Endoscopy PMFSH Active Problems Active Problems: All Active Problems GERD (gastroesophageal reflux disease) (Acute) Odynophagia (Acute) Anemia (Acute) Right elbow tendinitis (Acute) Actinic keratoses (Acute) Upper respiratory tract infection (Acute) Vertigo (Acute) Hives (Acute) Hyperglycemia (Acute) Frequent headaches (Acute) Annual physical exam (Acute) Past Medical History Medical History Heart palpitations Hives Hyperglycemia Frequent headaches Annual physical exam Family History Family History Father Hyperlipidemia Colon polyps Mother HTN (hypertension) Paternal Uncle Cancer Family history of problems with anesthesia: No Surgical History Surgical History Hx of tonsillectomy Hx of colonoscopy (~04/2023) Hx of wisdom tooth extraction S/P appendectomy H/O vasectomy History of Problems with Anesthesia: No Social History Social History 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 Alcohol intake: current Alcohol intake frequency: 0-2 drinks per day Patient Tobacco Use Status: Former Tobacco user e-Cigarette/Vaping Use: Never Used Use of substances other than those prescribed or required for medical reasons: Yes Are you DNR?: No Advance Directives: No Advance Directives Information Provided: Yes service: No Current occupational status: employed 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, 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 Cognitive needs: No Hearing needs: No Vision needs: Yes Meds Allergies Allergy/AdvReac Type Severity Reaction Status Date / Time aspirin [ASPIRIN] Allergy Unknown HIVES Verified 10/10/23 12:14 [place] And Derivatives AdvReac Severe Hives Verified 10/10/23 12:14 juliana AdvReac Severe Hives Verified 10/10/23 12:14 Assessment and Plan Assessment Anesthesia Assessment: Chart Reviewed Final Anesthetic Review Family History of Problems with Anesthesia: No History of Problems with Anesthesia: No Documented by User: Zabrina Elizondo MD 10/19/23 10:44 PMFSH Past Medical History Medical History Heart palpitations Hives Hyperglycemia Frequent headaches Annual physical exam Family History Family History Father Hyperlipidemia Colon polyps Mother HTN (hypertension) Paternal Uncle Cancer Surgical History Surgical History Hx of tonsillectomy Hx of colonoscopy (~04/2023) Hx of wisdom tooth extraction S/P appendectomy H/O vasectomy Social History Social History 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 Alcohol intake: current Alcohol intake frequency: 0-2 drinks per day Patient Tobacco Use Status: Former Tobacco user e-Cigarette/Vaping Use: Never Used Use of substances other than those prescribed or required for medical reasons: Yes Are you DNR?: No Advance Directives: No Advance Directives Information Provided: Yes service: No Current occupational status: employed 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, 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 Cognitive needs: No Hearing needs: No Vision needs: Yes Meds Allergies Allergy/AdvReac Type Severity Reaction Status Date / Time aspirin [ASPIRIN] Allergy Unknown HIVES Verified 10/10/23 12:14 [place] And Derivatives AdvReac Severe Hives Verified 10/10/23 12:14 juliana AdvReac Severe Hives Verified 10/10/23 12:14 Exam Airway Mallampati Class: II TM Dist: >3cm Neck ROM: Full Loose/Missing/Broken Teeth: No Heart: RRR Lungs: CTA Assessment and Plan Assessment Anesthesia Assessment: Anesthesia Plan Discussed Final Anesthetic Review NPO: Yes ASA Class: II Final Preanesthetic Review: Meds/Allgs Chart Reviewed, Consent Obtained/Reviewed and Anes Risks/Benef Reviewed Patient Risk: Low Procedure Risk: Intermediate Anesthetic Plan Anesthetic Plan: MAC: Disposition: Standard PACU
[2023-10-19 09:09] VITALS: BMI 28.2
[2023-10-19 09:15] VITALS: BP 136/82; PULSE 64; RESP 16; TEMP 36.5; O2SAT 99
[2023-10-19] MEDS: Lactated Ringers 1,000 ML 100 ML IVCONT (09:27)
--- NOTE | 2023-10-19 10:16 | MHC.SHP ---
Pre-Procedural Eval Section A - 24 Hr Update-Section A only Date of Service: 10/19/23 Section B - Complete if H&P > 30 days Chief Complaint: Gastro-esophageal reflux disease without esophagit Relevant Family History (Specify if Yes): No Relevant Social History: None Present Medications: see Short Stay Collaborative assessment Medical History: Significant History (Hives Hyperglycemia Frequent headaches) History of Previous Operations: Relevant previous surgery/procedure and date(s) (Hx of colonoscopy (~04/2023) Hx of wisdom tooth extraction S/P appendectomy H/O vasectomy) Allergies: Allergies Allergy/AdvReac Type Severity Reaction Status Date / Time aspirin [ASPIRIN] Allergy Unknown HIVES Verified 10/10/23 12:14 [place] And Derivatives AdvReac Severe Hives Verified 10/10/23 12:14 juliana AdvReac Severe Hives Verified 10/10/23 12:14 Review of Systems Sugical H&P ROS: Negative: Constitution, Cardiovascular, Respiratory, Neurological, Psychiatric, Hem-Onc, Allergic/Immunologic, Gastrointestinal, Genitourinary, Musculoskeletal, Integumentary, Endocrine and Eyes/Ears/Nose/Throat Exam Surgical H&P Exam: Normal: HEENT, Normal: Heart, Normal: Lungs, Normal: Extremities, Normal: Abdomen, Normal: Skin and Normal: Neurological Plan Diagnosis/Plan: Unchanged I have reviewed the history and physical and performed a pertinent physical examination on my patient. No changes have occurred unless specified. Time Spent With Patient Time: Total time managing care of this patient today ____ minutes.
--- NOTE | 2023-10-19 10:54 | W.PM.OPN ---
Operative Note Operative Note Date of Service: 10/19/23 Narrative: Procedure Description: EGD Indication: dysphagia, GERD Anesthesia: MAC FLEXIBLE TRANSORAL UPPER GASTROINTESTINAL ENDOSCOPY UPPER ENDOSCOPY Consent: Indications for the procedure and potential complications of bleeding, perforation, reaction to medications and missed diagnosis were discussed with the patient and informed consent was obtained. Instrument: Olympus GIF H 190 J mid size upper endoscope Monitoring: Vital signs and clinical assessment, continuous EKG monitoring, Pulse oximetry, Carbon Dioxide monitoring and blood pressure monitoring were done throughout the procedure. Procedure: The patient was placed in the left lateral decubitis position and pre-procedure medications were administered and a bite block was placed. The endoscope was inserted into the mouth and advanced under direct vision to the third part of duodenum. A careful inspection was made as the upper endoscope was withdrawn including a retroflexed examination of the proximal stomach; Findings and interventions are described below. Findings: Larynx:normal Esophagus: GE junction at 39 cm, diaphragm hiatus at 39 cm, single island of salmon pink mucosa, bx taken to r/o barrettnereyda contreras ring noted, balloon dilation done to 20 mm at LES and 19 mm at UES, no tears seen. Bx taken from distal and proximal esophagus Stomach: patchy erythema . Biopsies were obtained. Grade 2 flap valve on retroflexed examination of the cardia. Duodenum: Normal bulb and descending duodenum, Intervention: Biopsies as noted above, balloon dilation Impression/Findings: gastritis possible barretts schatzki ring PLAN: cont with PPI as it is helping his sx GERD precautions
[2023-10-19 11:02] VITALS: BP 122/80; PULSE 78; RESP 16; TEMP 36.6; O2SAT 97
[2023-10-19 11:17] VITALS: BP 135/84; PULSE 56; RESP 16; TEMP 36.7; O2SAT 97
== END 2023-10-19 11:51 | disposition home or self-care (01) ==
PROVIDERS: PCP Internal Medicine; Visit Provider Internal Medicine Gastroenterology
PROC: 0DJ08ZZ Inspection of Upper Intestinal Tract, Via Natural or Artificial Opening Endoscopic (ICD-10-PCS; CPT 43235; principal; 2023-10-19 11:00)
DX: K21.9 Gastro-esophageal reflux disease without esophagitis (principal); K29.50 Unspecified chronic gastritis without bleeding; K22.2 Esophageal obstruction; K44.9 Diaphragmatic hernia without obstruction or gangrene; R73.9 Hyperglycemia, unspecified; R51.9 Headache, unspecified; Z79.899 Other long term (current) drug therapy; Z88.6 Allergy status to analgesic agent; Z98.52 Vasectomy status; Z87.891 Personal history of nicotine dependence
CPT/HCPCS: 43249; 43239; 88305; 88307; 88313; 88342; C1726; J1596; J2704

== ENCOUNTER → 2023-10-19 09:00 | Outpatient (BNV) | payer BC, SELFPAY | PROVIDERS: PCP Internal Medicine; Visit Provider Internal Medicine Gastroenterology | DX: K22.2 Esophageal obstruction (principal); K21.9 Gastro-esophageal reflux disease without esophagitis | CPT/HCPCS: 43239; 43249 ==

== ENCOUNTER 2023-12-11 10:26 | Outpatient (AMB) | payer BC, SELFPAY ==
[2023-12-11 10:28] VITALS: BP 118/78; PULSE 64; TEMP 36.8; O2SAT 99; BMI 28.5
--- NOTE | 2023-12-11 10:28 | MHC.OFFWIV ---
Intake Vital Signs 12/11/23 10:28 Height 5 ft 7 in Weight 182 lb BMI 28.5 BP 118/78 Blood Pressure Location Rt brachial Position Sitting Pulse 64 Pulse Source Pulse Oximeter Temp 98.3 F Temp Source Oral Pulse Oximetry (%) 99 Oxygen Delivery Method Room Air Intake Visit Reasons: EP Lt middle finger swelling/pain Intake Note: Pt c/o LT middle finger swelling/pain. No known injury. Started Monday evening Patient Tobacco Use Status: Former Tobacco user Allergies aspirin [ASPIRIN] Allergy (Unknown, Verified 12/11/23 10:29) HIVES [place] And Derivatives Adverse Reaction (Severe, Verified 12/11/23 10:29) Hives juliana Adverse Reaction (Severe, Verified 12/11/23 10:29) Hives Do you need a note to return to daycare/school/sports/work: Yes HPI EP Lt middle finger swelling/pain HPI Details This note is constructed using voice recognition software. While every effort has been made to ensure accuracy, coordinator hotels errors may have been included. The patient is a 48 year old male who presents to the clinic today with left 3rd finger swelling. He reports that he developed swelling in the finger, and he was unable to take, for work so he was seen by telehealth urgent care for evaluation. Due to the swelling he was started on Augmentin for antibiotics. Since that time the symptoms have improved, pain has decreased, so swelling has decreased. He presents today just due to the fact that the symptoms have not completely resolve. 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 Alcohol intake: current Alcohol intake frequency: 0-2 drinks per day Patient Tobacco Use Status: Former Tobacco user e-Cigarette/Vaping Use: Never Used service: No Current occupational status: employed 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, 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 Cognitive needs: No Hearing needs: No Vision needs: Yes Review of Systems Const All systems reviewed & are unremarkable except as noted in HPI and below Physical Exam Vital Signs: Last Vital Signs Temp 98.3 F 12/11/23 10:28 Pulse 64 12/11/23 10:28 BP 118/78 12/11/23 10:28 Pulse Ox 99 12/11/23 10:28 Oxygen Delivery Method Room Air 12/11/23 10:28 BMI result Body Mass Index 28.5 Const General: cooperative, healthy appearing, comfortable, no acute distress and alert Orientation/consciousness: patient oriented x3 Limitations: no limitations Skin General skin exam: no rashes or lesions noted, elasticity normal and turgor normal Neuro General: patient oriented x3 Extrem Other: Left middle finger full range of motion including flexion and extension, with good strength. Hand grasps equal 5/5. No erythema, warmth. Slight edema throughout 3rd finger. General: Yes normal to inspection, Yes full ROM, Yes capillary refill normal and Yes normal exam except as noted Psych Appearance: grossly normal Mental Status: mental status grossly normal Speech and movement: Normal speech and movement present Affect: normal affect Assessment & Plan Assessment & Plan (1) Cellulitis: Code(s): L03.90 - Cellulitis, unspecified Qualifiers: Site of cellulitis: extremity Site of cellulitis of extremity: finger Laterality: left Qualified Code(s): L03.012 - Cellulitis of left finger Plan: Advised patient to continue antibiotics until complete, that were previously prescribed. Reviewed return precautions including increased swelling or pain or erythema, warmth to the area. Advised NSAIDs for pain as needed. Advised follow up with worsening or failure to resolve. Plan See above for full details and plan. Coding Level of Care Code Est Pt Level 3 (01133) Diagnoses Cellulitis of finger of left hand L03.012 Site of cellulitis: extremity Site of cellulitis of extremity: finger Laterality: left
== END 2023-12-11 11:02 | disposition home or self-care (01) ==
PROVIDERS: PCP Internal Medicine; Visit Provider Registered Nurse
DX: L03.012 Cellulitis of left finger (principal)

== ENCOUNTER → 2023-12-11 10:26 | Outpatient (BNVA) | payer BC, SELFPAY | PROVIDERS: PCP Internal Medicine | DX: L03.012 Cellulitis of left finger (principal) ==

== ENCOUNTER 2023-12-19 08:21 | Outpatient (REF) | payer BC, SELFPAY ==
--- NOTE | ~2023-12-19 | FL_ITS ---
EXAMINATION: XR FLUOROSCOPY UPPER GI WITH AIR CLINICAL INFORMATION: Reflux. Dysphagia COMPARISON: None TECHNIQUE: Fluoroscopic air contrast upper GI examination was performed utilizing standard techniques with thin and thick barium and effervescent granules. Numerous spot images were obtained. FINDINGS: Lateral cine images of the oropharynx and hypopharynx demonstrate normal swallow mechanism with normal epiglottic inversion and soft palate elevation. No tracheal penetration, glottic or subglottic aspiration identified. No nasopharyngeal reflux present. Hypopharyngeal structures appear normal without evidence of mass or diverticulum. There was no significant cricopharyngeal achalasia. Dual and single contrast images of the esophagus demonstrate normal caliber, contour, and mucosal pattern. No evidence of stricture, mass, or ulcerations identified. Esophageal peristalsis was normal. Small type I hiatal hernia is present. There is a wide open Schatzki's ring at the GE junction. Significant gastroesophageal reflux is seen up to the thoracic inlet. Dual contrast and single contrast images of the stomach demonstrated a normal contour. The gastric rugal folds have a thickened appearance, suggestive of gastritis. No masses or ulcerations are seen Contrast freely passed into the gastric antrum and duodenal bulb without delay. Single and air-contrast images of the duodenal bulb demonstrate no abnormality. The duodenal sweep has a normal appearance, course, and mucosal fold appearance. The imaged proximal jejunum has a normal fold pattern and caliber. FLUOROSCOPY TIME: 3 minutes 3 seconds DOSE AREA PRODUCT: 2128 uGy-m2 (microgray-meter squared) FL/FL upper GI w air IMPRESSION: 1. Small type I hiatal hernia with severe gastroesophageal reflux. 2. Schatzki ring present at the GE junction without significant obstruction or narrowing. 3. Mildly thickened appearance of the gastric rugal folds, possibly representing mild gastritis. This procedure was performed by Sam Chandra PA-C, and supervised by Dr. Zarate Electronically signed by: Fredo Zarate MD 12/20/2023 04:10 PM EDT
== END 2023-12-19 08:22 | disposition home or self-care (01) ==
LOC: HO.XRAY 08:21
PROVIDERS: PCP Internal Medicine; Visit Provider Nurse Practitioner Family
DX: K21.9 Gastro-esophageal reflux disease without esophagitis (principal)
CPT/HCPCS: 74246

== ENCOUNTER → 2023-12-19 08:22 | Outpatient (BNV) | payer BC, SELFPAY | PROVIDERS: PCP Internal Medicine; Visit Provider Radiology Diagnostic Radiology | DX: R13.10 Dysphagia, unspecified (principal); K21.9 Gastro-esophageal reflux disease without esophagitis | CPT/HCPCS: 74246 ==

== ENCOUNTER 2024-02-09 16:09 | Outpatient (AMB) | payer BC, SELFPAY ==
[2024-02-09 16:11] VITALS: BP 142/88; PULSE 80; O2SAT 96; BMI 28.4
--- NOTE | 2024-02-09 16:11 | A.OFFVIS_ITS ---
Vital Signs 02/09/24 16:11 Height 5 ft 7 in Weight 181 lb 10.574 oz BMI 28.4 BP 142/88 H Blood Pressure Location Lt brachial Position Sitting Pulse 80 Pulse Source Pulse Oximeter Pulse Oximetry (%) 96 Oxygen Delivery Method Room Air Intake Visit Reasons: Discuss procedure results, and ongoing treatment Intake Note: Relevant Flags or Indicators ? Requires Reception? N Felipe presents in office today for a scheduled s/p FUV to discuss ongoing chronic sx treatment in addition to results. Relevant GI Sx as reported per pt? Reflux ? Dysphagia ? Fecal abnormalities - Foreign bodies? Pt believes he sees Polyps... o?? Constipation - Ribbon shaped stools. ? Hx of any recent surgeries? EGD w/ TH, in addition to GI Series per Radiology Pt needs refill of PPI. Reception Required: No Allergies aspirin [ASPIRIN] Allergy (Unknown, Verified 02/09/24 16:12) HIVES [place] And Derivatives Adverse Reaction (Severe, Verified 02/09/24 16:12) Hives juliana Adverse Reaction (Severe, Verified 02/09/24 16:12) Hives HPI HPI Discuss procedure results, and ongoing treatment: Details: LAST VISIT: GERD (gastroesophageal reflux disease) Nausea and vomiting in adult Postprandial epigastric pain Plan Patient will start taking pantoprazole daily. Avoid dietary triggers and late night snacking. Patient will be sent for upper GI series as well as for endoscopy to rule out esophagitis, gastritis, duodenitis, Vázquez's, gastric or peptic ulcers, H pylori. Patient denies any issues with anesthesia in the past. No history of sleep apnea. Not on any anticoagulation medication. Patient did well with anesthesia during colonoscopy this year. Patient will follow-up after the procedure. He will call if pantoprazole will not be working for him. He is agreeable to this plan and verbalizes understanding of instructions. He was given the opportunity to ask questions and all questions answered. ? Thank you for allowing me to participate in his care Orders Orders FL upper GI series 10/10/23 K21.9 Medications New pantoprazole take one tablet half an hour before breakfast 40 mg PO DAILY 30 tabs 2RF K21.9 pantoprazole take one tablet half an hour before breakfast 40 mg PO DAILY 30 tabs 2RF K21.9 UPPER ENDOSCOPY 10/19/2023 Findings: Larynx:normal Esophagus: GE junction at 39 cm, diaphragm hiatus at 39 cm, single island of salmon pink mucosa, bx taken to r/o barretts, abhiki ring noted, balloon dilation done to 20 mm at LES and 19 mm at UES, no tears seen. Bx taken from distal and proximal esophagus Stomach: patchy erythema . Biopsies were obtained. Grade 2 flap valve on retroflexed examination of the cardia. Duodenum: Normal bulb and descending duodenum, Intervention: Biopsies as noted above, balloon dilation Impression/Findings: gastritis possible barretts schatzki ring PLAN: cont with PPI as it is helping his sx GERD precautions PATHOLOGY RESULTS: Diagnosis A. GE junction, biopsy: - Cardiac-type mucosa with mild chronic inactive inflammation; no intestinal metaplasia seen. - Squamous mucosa within normal limits. B. Esophagus, distal, biopsy: Squamous epithelium within normal limits; no inflammation seen. C. Stomach, biopsy: Antral-type and oxyntic mucosa with mild chronic inactive inflammation; no Helicobacter organisms seen. D. Esophagus, proximal, biopsy: Squamous epithelium within normal limits; no inflammation seen. TODAY'S VISIT Patient is here today for follow-up, ran out of his pantoprazole. Patient has not followed up after upper endoscopy. No H pylori, no active inflammation seen. Patient reports that he was doing well after the procedure taking pantopr azole daily. Patient was found to have Schatzki ring dilated during endoscopy. However patient has upper GI series done in December and possible Schatzki ring was identified at the GE junction. Patient denies trouble swallowing at this time. He does reports reflux though. Previously had trouble with swallowing. Patient reports that when he was taking pantoprazole it was working for him well. Patient states that he did not have to use famotidine at all, however currently he started taking famotidine for symptoms of epigastric pain and acid reflux. Patient denies dyspepsia, dysphagia or odynophagia. Patient reports also to be constipated. Has to push to have a bowel movement, ribbon like. Patient admits that he most likely does not eat enough fiber. [facility] Medical History (Updated 02/09/24 @ 19:05 by Cele Nguyễn [facility]) Schatzki's ring Heart palpitations Hives Hyperglycemia Frequent headaches Annual physical exam Surgical History Hx of tonsillectomy Hx of colonoscopy (~04/2023) Hx of wisdom tooth extraction S/P appendectomy H/O vasectomy Family History Father Hyperlipidemia Colon polyps Mother HTN (hypertension) Paternal Uncle Cancer Social History Household Members Other:: works as [employer] Housing: House Alcohol intake: current Alcohol intake frequency: 0-2 drinks per day Patient Tobacco Use Status: Former Tobacco user e-Cigarette/Vaping Use: Never Used service: No Current occupational status: employed 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, 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 Cognitive needs: No Hearing needs: No Vision needs: Yes Review of Systems Const Denies weight gain and Denies weight loss ENT Reports no additional complaints, Denies dysphagia and Denies odynophagia Card Reports no additional complaints Resp Reports no additional complaints GI Denies abdominal pain, Denies belching, Denies melena, Denies bloating, Denies change in bowel habits, Reports constipation, Denies dysphagia, Denies excessive flatus, Denies dyspepsia, Reports heartburn, Denies diarrhea, Denies loose stools, Denies nausea, Denies odynophagia and Denies vomiting Reports no additional complaints Musc Reports no additional complaints Neuro Reports no additional complaints Psych Reports no additional complaints Endo Reports no additional complaints Physical Exam Vital Signs: Last Vital Signs Pulse 80 02/09/24 16:11 BP 142/88 H 02/09/24 16:11 Pulse Ox 96 02/09/24 16:11 Oxygen Delivery Method Room Air 02/09/24 16:11 BMI result Body Mass Index 28.4 Const General: healthy appearing, no acute distress and well developed Nutritional Appearance: well nourished Orientation/consciousness: patient oriented x3 Resp Effort & Inspection: normal respiratory effort, able to speak in complete sentences, no tracheal deviation and symmetric chest movement Auscultation: clear to auscultation bilaterally Cardio Rate: regular rate GI Inspection: Yes normal to inspection and No distended Palpation (GI): Soft to palpation, not firm, nontender and No hepatosplenomegaly present Auscultation: normal bowel sounds General: Yes no CVA tenderness Back/Spine/Pelvis Back: no CVA tenderness Skin General skin exam: elasticity normal, turgor normal and dry skin Neuro General: patient oriented x3 Psych Appearance: grossly normal Mental Status: mental status grossly normal Results Reviewed Results Reviewed: UPPER GI SERIES 12/19/2023 IMPRESSION: 1. Small type I hiatal hernia with severe gastroesophageal reflux. 2. Schatzki ring present at the GE junction without significant obstruction or narrowing. 3. Mildly thickened appearance of the gastric rugal folds, possibly representing mild gastritis. Assessment & Plan Assessment & Plan (1) Schatzki's ring: Code(s): K22.2 - Esophageal obstruction Category: Medical (2) Nausea and vomiting in adult: Code(s): R11.2 - Nausea with vomiting, unspecified (3) Postprandial epigastric pain: Code(s): R10.13 - Epigastric pain (4) Constipation: Code(s): K59.00 - Constipation, unspecified Qualifiers: Constipation type: slow transit constipation Qualified Code(s): K59.01 - Slow transit constipation Plan Patient will start taking pantoprazole again. Avoid dietary triggers and late night snacking. Staying upright for minimum 3 hours after meals. Patient will increase fiber intake. Patient can take fiber with probiotics to help him move his bowels, however is he is having trouble he can start taking MiraLax daily. He will return in 6 months. If he will develop any new GI concerning symptoms he will call our office. He is agreeable to current plan of care and verbalizes understanding of instructions. He was given the opportunity to ask questions and all questions answered. Thank you for allowing me to participate in his care Medications: Refilled pantoprazole take one tablet half an hour before breakfast 40 mg PO DAILY 90 tabs 2RF K21.9 - Gastro-esophageal reflux disease without esophagitis pantoprazole take one tablet half an hour before breakfast 40 mg PO DAILY 90 tabs 4RF K21.9 - Gastro-esophageal reflux disease without esophagitis Coding Level of Care Code Est Pt Level 4 (19036) Complex EM visit Add On G2211 Diagnoses Schatzki's ring K22.2 Nausea and vomiting in adult R11.2 Postprandial epigastric pain R10.13 Slow transit constipation K59.01 Constipation type: slow transit constipation Time Spent (min) 35 Comment 20 minutes spent with patient and additional 15 minutes spent reviewing his records
== END 2024-02-09 16:59 | disposition home or self-care (01) ==
PROVIDERS: PCP Internal Medicine; Referring Provider Internal Medicine; Visit Provider Nurse Practitioner Family
DX: K22.2 Esophageal obstruction (principal); R11.2 Nausea with vomiting, unspecified; R10.13 Epigastric pain; K59.01 Slow transit constipation
CPT/HCPCS: 99214

== ENCOUNTER 2024-03-22 09:12 | Outpatient (AMB) | payer BC, SELFPAY ==
--- NOTE | 2024-03-22 09:59 | MHC.OFFWIV ---
Intake Vital Signs 03/22/24 10:01 Weight 190 lb BP 130/80 Blood Pressure Location Lt brachial Position Sitting Pulse 78 Pulse Source Pulse Oximeter Temp 98.4 F Temp Source Oral Pulse Oximetry (%) 98 Oxygen Delivery Method Room Air Intake Visit Reasons: EP sinus, cough, weak Intake Note: Patient here for loss of voice, cough, weakness and sinus congestion which started Monday Patient Tobacco Use Status: Former Tobacco user Allergies aspirin [ASPIRIN] Allergy (Unknown, Verified 02/09/24 16:12) HIVES [place] And Derivatives Adverse Reaction (Severe, Verified 02/09/24 16:12) Hives juliana Adverse Reaction (Severe, Verified 02/09/24 16:12) Hives Do you need a note to return to daycare/school/sports/work: No HPI EP sinus, cough, weak HPI Details This is a 49 year old male patient who presents to the [place] clinic today with a 5-6 day history of productive cough with green/yellow sputum, nasal congestion, fatigue. Reports son and had similar symptoms last week and are now improved. Their viral testing was normal. He has ongoing sinus pressure and symptoms noted above. Denies fever/chills, sore throat, or GI symptoms. [facility] Medical History Schatzki's ring Heart palpitations Hives Hyperglycemia Frequent headaches Annual physical exam Surgical History Hx of tonsillectomy Hx of colonoscopy (~04/2023) Hx of wisdom tooth extraction S/P appendectomy H/O vasectomy Family History Father Hyperlipidemia Colon polyps Mother HTN (hypertension) Paternal Uncle Cancer Social History 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 Alcohol intake: current Alcohol intake frequency: 0-2 drinks per day Patient Tobacco Use Status: Former Tobacco user e-Cigarette/Vaping Use: Never Used service: No Current occupational status: employed 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, 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 Cognitive needs: No Hearing needs: No Vision needs: Yes Physical Exam Vital Signs: Last Vital Signs Temp 98.4 F 03/22/24 10:01 Pulse 78 03/22/24 10:01 BP 130/80 03/22/24 10:01 Pulse Ox 98 03/22/24 10:01 Oxygen Delivery Method Room Air 03/22/24 10:01 Const General: cooperative and ill appearing acutely Limitations: no limitations HEENT Head: Yes normal to inspection Ears: hearing grossly normal bilaterally and TM's normal bilaterally General nose exam: Normal external nose present Face and sinus: Yes sinus tenderness (frontal and maxillary) Mouth: Normal oral and palatal mucosa present Throat: Yes posterior oropharynx normal Neck Neck: Yes no lymphadenopathy Resp Effort & Inspection: normal respiratory effort Auscultation: clear to auscultation bilaterally Cardio Rate: regular rate Rhythm: regular rhythm Skin General skin exam: no rashes or lesions noted Extrem General: Yes capillary refill normal and Yes no clubbing, cyanosis or edema Psych Appearance: grossly normal Mental Status: mental status grossly normal Speech and movement: Normal speech and movement present Assessment & Plan Assessment & Plan (1) Upper respiratory tract infection: Code(s): J06.9 - Acute upper respiratory infection, unspecified Qualifiers: URI type: unspecified URI Qualified Code(s): J06.9 - Acute upper respiratory infection, unspecified Plan: Declines viral testing today. Will start on azithromycin for acute sinusitis. We reviewed indications, use, possible side effects of medication. Advised continued [id number] cold/flu medication as he finds beneficial. Also recommended increase rest, hydration, healthy food intake. If he does not improve with time and these measures, or if symptoms worsen, he should return to the clinic for further evaluation. Patient verbalizes understanding and agrees to plan. (2) Acute sinusitis: Code(s): J01.90 - Acute sinusitis, unspecified Qualifiers: Sinusitis location: maxillary Recurrence: non-recurrent Qualified Code(s): J01.00 - Acute maxillary sinusitis, unspecified Plan: As above Medications: New azithromycin For 250 mg dose pack: take 500 mg today (day 1), then 250 mg for 4 days (days 2-5) PO 6 tabs 0RF J06.9 - Acute upper respiratory infection, unspecified Coding Level of Care Code Est Pt Level 4 (96878) Diagnoses Upper respiratory tract infection, unspecified type J06.9 URI type: unspecified URI Acute non-recurrent maxillary sinusitis J01.00 Sinusitis location: maxillary Recurrence: non-recurrent
[2024-03-22 10:01] VITALS: BP 130/80; PULSE 78; TEMP 36.9; O2SAT 98
== END 2024-03-22 10:29 | disposition home or self-care (01) ==
PROVIDERS: PCP Internal Medicine; Visit Provider Nurse Practitioner Family
DX: J06.9 Acute upper respiratory infection, unspecified (principal); J01.00 Acute maxillary sinusitis, unspecified

== ENCOUNTER → 2024-03-22 09:12 | Outpatient (BNVA) | payer BC, SELFPAY | PROVIDERS: PCP Internal Medicine; Visit Provider Nurse Practitioner Family ==

== ENCOUNTER 2024-04-03 12:58 | Outpatient (REF) | payer BC, SELFPAY ==
[2024-04-03 17:50] LABS: Influenza A PCR POSITIVE (Negative); Influenza B PCR NEGATIVE (Negative); Resp Syncy Virus RNA Qual PCR NEGATIVE (Negative); SARS COV2 PCR INHOUSE NEGATIVE (Negative)
== END 2024-04-03 12:59 | disposition home or self-care (01) ==
LOC: HO.LNP 12:58
PROVIDERS: Visit Provider Physician Assistant
DX: J06.9 Acute upper respiratory infection, unspecified (principal)
CPT/HCPCS: 0241U

== ENCOUNTER 2024-04-03 12:58 | Outpatient (AMB) | payer BC, SELFPAY ==
--- NOTE | 2024-04-03 14:07 | AM.OFFWIN_ITS ---
Intake Vital Signs 04/03/24 14:08 Weight 189 lb BP 122/80 Blood Pressure Location Lt brachial Position Sitting Pulse 86 Pulse Source Pulse Oximeter Temp 99.3 F Temp Source Oral Pulse Oximetry (%) 96 Oxygen Delivery Method Room Air Intake Visit Reasons: EP-fever, chest pain, cough, running nose Intake Note: Patient here for cough, chest tightness, congestion that started Monday, pt states his and child have the flu. Patient Tobacco Use Status: Never used Tobacco Allergies aspirin [ASPIRIN] Allergy (Unknown, Verified 04/03/24 14:07) HIVES [place] And Derivatives Adverse Reaction (Severe, Verified 04/03/24 14:07) Hives juliana Adverse Reaction (Severe, Verified 04/03/24 14:07) Hives Do you need a note to return to daycare/school/sports/work: No HPI HPI Comments History of Present Illness Details History - The patient is a 49-year-old male pres enting with cough and fever symptoms, suspecting influenza. - Cough began 2 days ago and is accompan ied by fever with the highest temperature at 101?F, managed at times with Tylenol. - Family members have been diagnosed wit h the flu, and the patient experiences lung pain while coughing. - There is a past history of pneumonia a nd a family history of bronchitis, though the patient denies any known history of asthma or COPD and is a non- smoker. - Reports occasional headaches throughou t the year, without consistent pattern. - Describes some nighttime coughing dist urbances. - Oxygen saturation recorded at 96%, les s likely signifying pneumonia as there's no significant hypoxia. Physical Exam General: Cooperative, healthy appearing, comfortable and no acute distress Orientation/consciousness: Patient oriented x3 Limitations: No limitations Head: Normal to inspection Ears: Hearing grossly normal bilaterally, external ears normal and TM's normal bilaterally Nose: Normal external nose present, Normal nares present and No nasal discharge present Face and sinus: Normal facial exam and Yes sinuses nontender Mouth: Normal oral and palatal mucosa present and moist mucous membranes Throat: Yes tonsils normal, Yes uvula midline. Posterior oropharynx erythema Eyes: Appearance normal, both eyes and all related structures Neck: Normal visual inspection Respiratory: Clear to auscultation bilaterally. Normal respiratory effort, able to speak in complete sentences, Actively coughing, no respiratory distress, not tachypneic, no tripod positioning and no use of accessory muscles. Some crackling and rattling noted in the lungs. Cardiovascular: Regular rate and rhythm. Normal S1 and S2 Skin: No rashes or lesions noted Neuro: Patient oriented x3 Extremities: Normal to inspection and Yes no clubbing, cyanosis or edema PFSH Medical History Schatzki's ring Heart palpitations Hives Hyperglycemia Frequent headaches Annual physical exam Surgical History Hx of tonsillectomy Hx of colonoscopy (~04/2023) Hx of wisdom tooth extraction S/P appendectomy H/O vasectomy Family History Father Hyperlipidemia Colon polyps Mother HTN (hypertension) Paternal Uncle Cancer Social History Household Members Other:: works as [employer] Housing: House Alcohol intake: current Alcohol intake frequency: 0-2 drinks per day Patient Tobacco Use Status: Never used Tobacco e-Cigarette/Vaping Use: Never Used service: No Current occupational status: employed 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, 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 Cognitive needs: No Hearing needs: No Vision needs: Yes Review of Systems Const All systems reviewed & are unremarkable except as noted in HPI and below Physical Exam Vital Signs: Last Vital Signs Temp 99.3 F 04/03/24 14:08 Pulse 86 04/03/24 14:08 BP 122/80 04/03/24 14:08 Pulse Ox 96 04/03/24 14:08 Oxygen Delivery Method Room Air 04/03/24 14:08 Assessment & Plan Assessment & Plan (1) Viral infection of lower respiratory system: Code(s): J22 - Unspecified acute lower respiratory infection; B97.89 - Other viral agents as the cause of diseases classified elsewhere Plan: The approach for this visit involves managing suspected influenza. A prescription for Tamiflu is provided to mitigate symptoms given their familial exposure to the virus. To aid breathing, a steroid course with prednisone is prescribed and should be started in the morning to reduce side effects. Tessalon Perles is provided to suppress nighttime coughing, enhancing sleep quality. A chest x-ray is currently deemed unnecessary due to stable oxygen levels and no alarming respiratory distress as well as clear lung sounds; monitoring is advised. [id number] medications are recommended for symptom alleviation, and patient response will be followed up to ensure recovery. Flu, Covid and RSV testing sent. Patient was informed and verbally consented to the use of an ambient scribe for clinic note documentation during this visit Orders: Orders SARS-CoV2/FLU/RSV Today J06.9 - Acute upper respiratory infection, unspecified Medications: New oseltamivir (Tamiflu) 75 mg PO Q12H 5 days 10 caps 0RF methylprednisolone PO PER PKG DIR for 6 days 21 ea 0RF benzonatate 200 mg PO TID PRN 14 caps 0RF cough Coding Level of Care Code Est Pt Level 3 (38937) Diagnoses Viral infection of lower respiratory system J22; B97.89
[2024-04-03 14:08] VITALS: BP 122/80; PULSE 86; TEMP 37.4; O2SAT 96
== END 2024-04-03 14:44 | disposition home or self-care (01) ==
PROVIDERS: PCP Internal Medicine; Visit Provider Physician Assistant
DX: J22 Unspecified acute lower respiratory infection (principal); B97.89 Other viral agents as the cause of diseases classified elsewhere

== ENCOUNTER 2024-04-03 12:58 | Outpatient (REF) | payer BC, SELFPAY | END 2024-04-03 12:59 | disposition home or self-care (01) | LOC: HO.LAB 12:58 | PROVIDERS: PCP Internal Medicine | DX: Z13.89 Encounter for screening for other disorder (principal) ==

== ENCOUNTER 2024-08-05 08:55 | Outpatient (AMB) | payer BC, SELFPAY ==
--- NOTE | 2024-08-05 09:38 | MHC.OFFVIS ---
Vital Signs 08/05/24 09:40 Height 5 ft 7 in Weight 181 lb BMI 28.3 BP 113/74 Blood Pressure Location Lt brachial Position Sitting Pulse 57 Pulse Oximetry (%) 98 Oxygen Delivery Method Room Air Intake Visit Reasons: 6 months f/u Intake Note: Patient follow up for Constipation. Patient cc: constipation and swallowing difficulty, denies any other GI issues. Proposition Player Required: No Accompanied by: Self / Same As Patient Allergies aspirin [ASPIRIN] Allergy (Unknown, Verified 08/05/24 09:37) HIVES [place] And Derivatives Adverse Reaction (Severe, Verified 08/05/24 09:37) Hives juliana Adverse Reaction (Severe, Verified 08/05/24 09:37) Hives HPI HPI 6 months f/u: Details: LAST VISIT [facility] Nausea and vomiting in adult Postprandial epigastric pain Constipation Plan Patient will start taking pantoprazole again. Avoid dietary triggers and late night snacking. Staying upright for minimum 3 hours after meals. Patient will increase fiber intake. Patient can take fiber with probiotics to help him move his bowels, however is he is having trouble he can start taking MiraLax daily. He will return in 6 months. If he will develop any new GI concerning symptoms he will call our office. He is agreeable to current plan of care and verbalizes understanding of instructions. He was given the opportunity to ask questions and all questions answered. ? Thank you for allowing me to participate in his care Medications Refilled pantoprazole take one tablet half an hour before breakfast 40 mg PO DAILY 90 tabs 2RF K21.9 pantoprazole take one tablet half an hour before breakfast 40 mg PO DAILY 90 tabs 4RF K21.9 TODAY'S VISIT Patient is here today for follow-up. Patient reports that he has been feeling better. Definitely less dysphagia. However patient reports that sometimes about every couple weeks see my experiences trouble swallowing. Feels like more in his throat than in his esophagus. Patient denies any choking episodes. However patient admits that before he started pantoprazole and before the endoscopy and dilation he experienced choking episodes occasionally. Patient denies dyspepsia or odynophagia. Reports trouble moving his bowels. Bowel movements every 2 or 3 days. Patient states that when he does have a bowel movement is usually hard and he has to push. Sometimes stool that looks like type 1 on the [place] chart [facility] Medical History (Updated 08/05/24 @ 12:52 by Cele Nguyễn, [facility]) Schatzki's ring Heart palpitations Hives Hyperglycemia Frequent headaches Surgical History Hx of tonsillectomy Hx of colonoscopy (~04/2023) Hx of wisdom tooth extraction S/P appendectomy H/O vasectomy Family History Father Hyperlipidemia Colon polyps Mother HTN (hypertension) Paternal Uncle Cancer Social History Household Members Other:: works as [employer] Housing: House Alcohol intake: current Alcohol intake frequency: 0-2 drinks per day Patient Tobacco Use Status: Never used Tobacco e-Cigarette/Vaping Use: Never Used service: No Current occupational status: employed 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, 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 Cognitive needs: No Hearing needs: No Vision needs: Yes Review of Systems Const Denies weight gain and Denies weight loss ENT Reports no additional complaints, Reports dysphagia (Infrequent) and Denies odynophagia Card Reports no additional complaints Resp Reports no additional complaints GI Denies abdominal pain, Denies belching, Denies melena, Reports bloating, Denies change in bowel habits, Reports constipation, Reports dysphagia (Infrequent), Denies excessive flatus, Denies dyspepsia, Reports heartburn, Denies diarrhea, Denies loose stools, Denies nausea, Denies odynophagia and Denies vomiting Reports no additional complaints Musc Reports no additional complaints Neuro Reports no additional complaints Psych Reports no additional complaints Endo Reports no additional complaints Physical Exam Vital Signs: Last Vital Signs Pulse 57 08/05/24 09:40 BP 113/74 08/05/24 09:40 Pulse Ox 98 08/05/24 09:40 Oxygen Delivery Method Room Air 05/19/25 09:40 BMI result Body Mass Index 28.3 Const General: healthy appearing, no acute distress and well developed Nutritional Appearance: well nourished Orientation/consciousness: patient oriented x3 Resp Effort & Inspection: normal respiratory effort, able to speak in complete sentences, no tracheal deviation and symmetric chest movement Auscultation: clear to auscultation bilaterally Cardio Rate: regular rate GI Inspection: Yes normal to inspection and No distended Palpation (GI): Soft to palpation, not firm, nontender and No hepatosplenomegaly present Auscultation: normal bowel sounds General: Yes no CVA tenderness Back/Spine/Pelvis Back: no CVA tenderness Skin General skin exam: elasticity normal, turgor normal and dry skin Neuro General: patient oriented x3 Psych Appearance: grossly normal Mental Status: mental status grossly normal Assessment & Plan Assessment & Plan (1) Schatzki's ring: Code(s): K22.2 - Esophageal obstruction Category: Medical (2) Nausea and vomiting in adult: Code(s): R11.2 - Nausea with vomiting, unspecified (3) Postprandial epigastric pain: Code(s): R10.13 - Epigastric pain (4) Constipation: Code(s): K59.00 - Constipation, unspecified Qualifiers: Constipation type: slow transit constipation Qualified Code(s): K59.01 - Slow transit constipation Plan Patient will continue pantoprazole daily. Avoid dietary triggers and late night snacking. If patient will have worsening symptoms of swallowing he will call our office. Patient will start taking Senokot daily. Increase fluid intake and activity to promote better bowel motility. Patient will follow-up in our office in 6 months, sooner on as needed basis. He is agreeable to this plan and verbalizes understanding of instructions. He was given the opportunity to ask questions and all questions answered. Thank you for allowing me to participate in his care Medications: New sennosides (Natural Senna Laxative) 17.2 mg (2 x 8.6 mg) PO BEDTIME 60 tabs 3RF constipation K59.00 - Constipation, unspecified Coding Level of Care Code Est Pt Level 3 (34830) Diagnoses Schatzki's ring K22.2 Nausea and vomiting in adult R11.2 Postprandial epigastric pain R10.13 Slow transit constipation K59.01 Constipation type: slow transit constipation Time Spent (min) 25 Comment 15 minutes spent with patient and additional 10 minutes spent reviewing his records
[2024-08-05 09:40] VITALS: BP 113/74; PULSE 57; O2SAT 98; BMI 28.3
== END 2024-08-05 09:57 | disposition home or self-care (01) ==
LOC: HO.HGI 08:55
PROVIDERS: PCP Internal Medicine; Visit Provider Nurse Practitioner Family
DX: K22.2 Esophageal obstruction (principal); R11.2 Nausea with vomiting, unspecified; R10.13 Epigastric pain; K59.01 Slow transit constipation
CPT/HCPCS: 99213

== ENCOUNTER 2024-09-25 07:18 | Outpatient (REF) | payer BC, SELFPAY ==
[2024-09-25 10:26] LABS: MANUAL DIFF FLAG NO
[2024-09-25 10:41] LABS: Hematocrit 38.7 % (42.0-52.0); Hemoglobin 13.6 g/dl (14.0-18.0); Imm Gran Abs Auto 0.01 X10*3/uL (0.00-0.03); Imm Gran Pct Auto 0.2 % (0.0-0.4); Lymphocytes Absolute Auto 1.4 X10*3/uL (1.2-4.9); Mean Corpuscular HGB Conc 35.1 g/dl (31.0-36.0); Mean Corpuscular Hemoglobin 29.7 pg (27.0-33.0); Mean Corpuscular Volume 84.5 fL (80.0-98.0); NRBC Abs Auto 0.000 X10*3/uL (0.0-0.012); NRBC Pct Auto 0.0 /100WBC (0.0-0.2); Platelet Count 284 X10*3/uL (160-400); Red Blood Count 4.58 X10*6/uL (4.60-5.80); White Blood Count 4.3 X10*3/uL (4.8-10.8)
[2024-09-25 10:57] LABS: Appearance Urine Clear; Glucose Urine UA Negative (Negative); PH 6.5 (5.0-9.0); Specific Gravity - Urine 1.020 (1.005-1.025)
[2024-09-25 11:15] LABS: PSA,Total (Free>4and<10) 0.16 ng/mL (0.00-4.00)
[2024-09-25 11:17] LABS: Alanine Aminotransferase 42 U/L (0-40); Albumin Level 4.6 g/dL (3.5-5.0); Alkaline Phosphatase 61 U/L (39-117); Anion Gap 11 (12-20); Aspartate Amino Transferase 28 U/L (5-37); Blood Urea Nitrogen 17 mg/dL (9-16); Calcium 9.6 mg/dL (8.4-10.2); Carbon Dioxide 28 mmol/L (22-29); Chloride 106 mmol/L (96-108); Cholesterol 168 mg/dL (<200); Estimated Glomerular Filt Rate > 60; HDL Cholesterol 48 mg/dL (>40); Potassium 4.7 mmol/L (3.3-5.1); Sodium 140 mmol/L (135-145); Total Protein 7.3 g/dL (6.5-8.0); Triglycerides 130 mg/dL (<150)
== END 2024-09-25 07:19 | disposition home or self-care (01) ==
LOC: HO.HMGCLDS 07:18
PROVIDERS: PCP Internal Medicine; Visit Provider Internal Medicine
DX: Z00.00 Encounter for general adult medical examination without abnormal findings (principal); J30.2 Other seasonal allergic rhinitis; K21.9 Gastro-esophageal reflux disease without esophagitis; J01.90 Acute sinusitis, unspecified; Z13.31 Encounter for screening for depression; Z13.39 Encounter for screening examination for other mental health and behavioral disorders; Z12.5 Encounter for screening for malignant neoplasm of prostate
CPT/HCPCS: 36415; 80053; 80061; 81001; 84153; 85025; 96127

== ENCOUNTER 2024-09-25 11:57 | Outpatient (AMB) | payer BC, SELFPAY ==
[2024-09-25 12:01] VITALS: BP 116/76; PULSE 65; RESP 18; TEMP 36.8; O2SAT 99; BMI 28.3
--- NOTE | 2024-09-25 12:01 | MHC.PC.OV ---
Vital Signs 09/25/24 12:01 Height 5 ft 7 in Weight 181 lb BMI 28.3 BP 116/76 Blood Pressure Location Lt brachial Position Sitting Respiration 18 Pulse 65 Pulse Source Pulse Oximeter Temp 98.2 F Temp Source Oral Pulse Oximetry (%) 99 Oxygen Delivery Method Room Air Intake Visit Reasons: Annual PE Intake Note: Pt is here today for PE. Allergies aspirin (ASPIRIN) Allergy (Unknown, Verified 09/25/24 12:05) HIVES [place] And Derivatives Adverse Reaction (Severe, Verified 09/25/24 12:05) Hives juliana Adverse Reaction (Severe, Verified 09/25/24 12:05) Hives Medication List - Last Reconciled 09/25/24 by Debo Santos MD cetirizine (Zyrtec) 10 mg PO DAILY PRN epinephrine (EpiPen 2-Rene) 0.3 mg (0.3 mL) IM Q10M PRN famotidine (Pepcid) 20 mg PO BEDTIME fluticasone propionate 50 mcg/actuation 2 sprays intranasal DAILY methylprednisolone PO PER PKG DIR for 6 days pantoprazole 40 mg PO DAILY sennosides (Natural Senna Laxative) 17.2 mg (2 x 8.6 mg) PO BEDTIME Tobacco use date assessed: 09/25/24 Dental Screening Dental Screen Date: 09/25/24 Did you have a dental visit in the last 12 months?: Yes Did you have a dental problem in the last 6 months where you did not have access to dental care?: No Was dental information given to patient?: Patient has dentist HPI Annual PE HPI Details Patient presents for physical. He reports frequent sinusitis and chronic allergic rhinitis year-round. He had allergy testingabout 10 years ago and started immunotherapy but stopped after few months because of time constraints. Patient reports 2 weeks of sinus congestion postnasal drip greenish discharge productive cough with green sputum. 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 1. Little interest or pleasure in doing things: not at all 2. Feeling down, depressed, or hopeless: not at all 3. Trouble falling or staying asleep, or sleeping too much: not at all 4. Feeling tired or having little energy: not at all 5. Poor appetite or overeating: not at all 6. Feeling bad about yourself - or that you are a failure or have let yourself or your family down: not at all 7. Trouble concentrating on things, such as reading the newspaper or watching television: not at all 8. Moving or speaking so slowly that other people could have noticed. Or the opposite - being so fidgety or restless that you have been moving around a lot more than usual: not at all 9. Thoughts that you would be better off or of hurting yourself in some way: not at all Total score: 0 Depression Screening Interpretation: Negative Depression Screening Done: Yes 41585 - PHQ-9 Billing: Yes Source: Developed by Drs. Steve Lloyd, Danielle Camacho, Tj Green and colleagues, with an educational maxi from [employer]. Thrive Questionnaire Date Thrive assessed: 09/25/24 I am a: Patient What is your living situation today?: I have a steady place to live Within the past 12 months, did the food you bought not last and you didn't have the money to get more?: Never true Within the past 12 months, did you worry whether your food would run out before you got money to buy more?: Never true Do you have trouble paying for medicines?: No Do you have trouble getting transportation to medical appointments?: No Do you have trouble paying your heating and electricity bill?: No Do you have trouble taking care of your child, family member or friend?: No Do you have trouble with day-to-day activities such as bathing, preparing meals, shopping, managing finances, etc.?: No Are you currently unemployed and looking for a job?: No Are you interested in more education?: No THRIVE Score: 0 AUDIT C Alcohol Use Questionnaire (AUDIT-C) 1. How often do you have a drink containing alcohol?: 2-3 times a week 2. How many drinks containing alcohol do you have on a typical day when you are drinking?: 1 or 2 3. How often do you have six or more drinks on one occasion?: Never Total Score: 3 LYNN-7 AMB Questionnaire LYNN-7 Date LYNN - 7 assessed: 09/25/24 Feeling nervous, anxious, or on edge: 0 = Not at all Not being able to stop or control worryin = Not at all Worrying too much about different things: 0 = Not at all Trouble relaxin = Not at all Being so restless that it is hard to sit still: 0 = Not at all Becoming easily annoyed or irritable: 0 = Not at all Feeling afraid as if something awful might happen: 0 = Not at all Total LYNN-7 score (0-4 normal; 5-9 mild; 10-14 moderate; 15-21 severe): 0 Source: Developed by Drs. Steve Lloyd, Danielle Camacho, Tj Green and colleagues, with an educational maxi from [employer]. LYNN-7 Assessment Billing LYNN-7 Assessment Tool: LYNN-7 Assessment 41996 Review of Systems Const All systems reviewed & are unremarkable except as noted in HPI and below ENT Reports no additional complaints Card Reports no additional complaints Resp Reports no additional complaints GI Reports no additional complaints Reports no additional complaints Physical exam (Primary Care) Vital Signs: Last Vital Signs Temp 98.2 F 09/25/24 12:01 Pulse 65 09/25/24 12:01 Resp 18 09/25/24 12:01 BP 116/76 09/25/24 12:01 Pulse Ox 99 09/25/24 12:01 Oxygen Delivery Method Room Air 09/25/24 12:01 BMI result Body Mass Index 28.3 Tobacco/Smoking Status: Tobacco use Status Tobacco use date assessed 09/25/24 09/25/24 12:10 Patient Tobacco Use Status Never used Tobacco 09/25/24 12:10 e-Cigarette/Vaping Use Never Used 09/25/24 12:02 PHQ-9: PHQ-9 Score PHQ-9: Total score 0 09/25/24 12:10 Depression Screening Interpretation: Negative Thrive Assessment: Date of Thrive Assessment Date Thrive assessed 09/25/24 09/25/24 12:10 Const General: no acute distress HENMT Head: Yes normal to inspection Ears: TM's normal bilaterally Face and sinus: Yes sinus tenderness Throat: Yes postnasal drainage Eyes General: appearance normal, both eyes and all related structures Neck Neck: Yes no lymphadenopathy and Yes supple Resp Effort & Inspection: normal respiratory effort Auscultation: clear to auscultation bilaterally Cardio Rhythm: regular rhythm Heart sounds: S1 normal heart sound present and S2 normal heart sound present GI Inspection: Yes normal to inspection Palpation (GI): Soft to palpation Percussion: Yes normal to percussion Auscultation: normal bowel sounds Coding Level of Care Code Est Pt Prev Care 40-64y(60668) Diagnoses Seasonal allergic rhinitis J30.2 Gastroesophageal reflux disease, unspecified whether esophagitis present K21.9 Esophagitis presence: esophagitis presence not specified Annual physical exam Z00.00 Sinusitis, acute J01.90 Additional Codes LYNN-7 Assessment Billing - LYNN-7 Assessment Tool: LYNN-7 Assessment 07488 ([id number]) PHQ-9 - 56084 - PHQ-9 Billing: Yes ([id number]) Assessment & Plan Assessment & Plan (1) Seasonal allergic rhinitis: Code(s): J30.2 - Other seasonal allergic rhinitis Category: Medical Plan: Continue antihistamine and Flonase. Referred to cutting table operator first (2) GERD (gastroesophageal reflux disease): Comment: EGD 10/2023, Schatzki ring, status post dilatation, esophageal biopsy negative for dysplasia, on PPI Code(s): K21.9 - Gastro-esophageal reflux disease without esophagitis Category: Medical Qualifiers: Esophagitis presence: esophagitis presence not specified Qualified Code(s): K21.9 - Gastro-esophageal reflux disease without esophagitis Plan: Continue PPI follow-up with GI (3) Annual physical exam: Comment: Negative colonoscopy May 2023, repeat 5 years because of fhx father with colon polyps Code(s): Z00.00 - Encounter for general adult medical examination without abnormal findings Category: Medical Plan: Well-balanced diet regular physical activity discussed with the patient. (4) Sinusitis, acute: Code(s): J01.90 - Acute sinusitis, unspecified Category: Medical Plan: Z-Rene is prescribed and supportive care discussed with the patient Orders: Orders Comprehensive [place]. Panel Fast 1 Year Z00.00 - Encounter for general adult medical examination without abnormal findings PSA,Total (Free>4and<10) 1 Year Z00.00 - Encounter for general adult medical examination without abnormal findings Complete Blood Count Auto Diff 1 Year Z00.00 - Encounter for general adult medical examination without abnormal findings Lipid Panel 1 Year Z00.00 - Encounter for general adult medical examination without abnormal findings UA w Microscopic 1 Year Z00.00 - Encounter for general adult medical examination without abnormal findings Referrals Allergy & Immunology Referral J30.2 - Other seasonal allergic rhinitis Medications: New azithromycin For 250 mg dose pack: take 500 mg today (day 1), then 250 mg for 4 days (days 2-5) PO 6 tabs 0RF
== END 2024-09-25 12:32 | disposition home or self-care (01) ==
LOC: HO.HMCC 11:58
PROVIDERS: PCP Internal Medicine; Visit Provider Internal Medicine
DX: J30.2 Other seasonal allergic rhinitis (principal); K21.9 Gastro-esophageal reflux disease without esophagitis; Z00.00 Encounter for general adult medical examination without abnormal findings; J01.90 Acute sinusitis, unspecified

== ENCOUNTER 2025-01-08 07:10 | Outpatient (AMB) | payer BC, SELFPAY ==
[2025-01-08 07:11] VITALS: BP 126/84; PULSE 72; TEMP 36.8; O2SAT 98; BMI 29.6
--- NOTE | 2025-01-08 07:11 | MHC.OFFWIV ---
Intake Vital Signs 01/08/25 07:11 Height 5 ft 7 in Weight 189 lb BMI 29.6 BP 126/84 Blood Pressure Location Rt brachial Position Sitting Pulse 72 Pulse Source Pulse Oximeter Temp 98.2 F Temp Source Oral Pulse Oximetry (%) 98 Oxygen Delivery Method Room Air Intake Visit Reasons: EP-rt lower side of tooth Intake Note: Patient presents with c/o right lower tooth pain due to a cracked tooth. Patient Tobacco Use Status: Never used Tobacco Allergies aspirin (ASPIRIN) Allergy (Unknown, Verified 01/08/25 07:14) HIVES [place] And Derivatives Adverse Reaction (Severe, Verified 01/08/25 07:14) Hives juliana Adverse Reaction (Severe, Verified 01/08/25 07:14) Hives Medication List - Last Reconciled 01/08/25 by Maeve Brown MD amoxicillin-pot clavulanate 875-125 mg 1 tab PO Q12H cetirizine (Zyrtec) 10 mg PO DAILY PRN epinephrine (EpiPen 2-Rene) 0.3 mg (0.3 mL) IM Q10M PRN famotidine (Pepcid) 20 mg PO BEDTIME fluticasone propionate 50 mcg/actuation 2 sprays intranasal DAILY pantoprazole 40 mg PO DAILY sennosides (Natural Senna Laxative) 17.2 mg (2 x 8.6 mg) PO BEDTIME Do you need a note to return to daycare/school/sports/work: No HPI HPI Comments History of Present Illness Details Patient was informed and verbally consented to the use of an ambient scribe for clinic note documentation during the visit. Dental Pain: - The patient reports lower right mandibular dental pain that became significantly stronger over the past weekend. - The pain radiates to the neck and head - There is no associated swelling, abscess, fevers, or chills. - The patient is able to eat and drink albeit with difficulty, opting to chew primarily on the left side. - The patient is scheduled for a dental evaluation and has also sought consultation with a dental specialist referred. He has an upcoming appointment on Monday - Concerns have been raised regarding the potential presence of an infection. Review of Systems - General: Denies Fever, denies chills. - Head, Ears, Eyes, Nose, Throat (HEENT): Reports lower right dental pain, trouble chewing . Physical Exam General Appearance: Normal appearance, well developed. No acute distress Mouth: No significant erythema or swelling surrounding the right lower 2nd molar. No abscess visualized. Patient handling secretions well. Neck: No palpable/enlarged cervical lymph nodes Head: Normocephalic, atraumatic. Pulmonary: No respiratory distress. Speaking in full sentences Musculoskeletal: Moving all extremities spontaneously and against gravity Mental Status: Alert and Oriented x 3 Psychiatric: Normal mood. Normal affect. 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 Alcohol intake: current Alcohol intake frequency: 0-2 drinks per day Patient Tobacco Use Status: Never used Tobacco e-Cigarette/Vaping Use: Never Used service: No Current occupational status: employed 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, 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 Cognitive needs: No Hearing needs: No Vision needs: Yes Physical Exam Vital Signs: Last Vital Signs Temp 98.2 F 01/08/25 07:11 Pulse 72 01/08/25 07:11 BP 126/84 01/08/25 07:11 Pulse Ox 98 01/08/25 07:11 Oxygen Delivery Method Room Air 01/08/25 07:11 BMI result Body Mass Index 29.6 Assessment & Plan Assessment & Plan (1) Pain, dental: Code(s): K08.89 - Other specified disorders of teeth and supporting structures Plan - Will cover for potential dental infection/pulpitis given the patient's history of persistent right lower tooth pain that radiates to the head and neck with heightened intensity over the weekend. No obvious dental abscess visualized. - Treatment includes initiating antibiotic therapy with Augmentin for five days to be taken with food. - The patient is advised to seek immediate care if any significant swelling, fevers, or chills develop. - The patient is instructed to attend the upcoming dental appointments for further evaluation and definitive management Medications: New amoxicillin-pot clavulanate 875-125 mg 1 tab PO Q12H 10 tabs 0RF Coding Level of Care Code Est Pt Level 3 (45311) Diagnoses Pain, dental K08.89
== END 2025-01-08 07:52 | disposition home or self-care (01) ==
PROVIDERS: PCP Internal Medicine; Visit Provider Family Medicine
DX: K08.89 Other specified disorders of teeth and supporting structures (principal)
CPT/HCPCS: 99213

== ENCOUNTER 2025-02-10 08:58 | Outpatient (AMB) | payer BC, SELFPAY ==
--- NOTE | 2025-02-10 09:01 | MHC.OFFVIS ---
Vital Signs 02/10/25 09:07 Height 5 ft 7 in Weight 186 lb BMI 29.1 BP 130/86 Blood Pressure Location Rt brachial Position Sitting Pulse 86 Pulse Source Pulse Oximeter Pulse Oximetry (%) 93 Oxygen Delivery Method Room Air Intake Visit Reasons: 6 mo f/u Intake Note: Est pt for mgmt of GERD + CIC. CC; C.O. ribbon like stools / constipation, and dysphagia intermittently despite current therapies. Pt also reports very rare instances of LLQ pain. 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 Avoid dietary triggers and late night snacking. If patient will have worsening symptoms of swallowing he will call our office. Patient will start taking Senokot daily. Increase fluid intake and activity to promote better bowel motility. Patient will follow-up in our office in 6 months, sooner on as needed basis. He is agreeable to this plan and verbalizes understanding of instructions. He was given the opportunity to ask questions and all questions answered. ? Thank you for allowing me to participate in his care New sennosides (Natural Senna Laxative) 17.2 mg (2 x 8.6 mg) PO BEDTIME 60 tabs 3RF constipation K59.00 TODAY'S VISIT Patient is here today for follow-up. Patient reports that he has been doing fairly well, however he does admit that occasionally he will have trouble swallowing certain food. Patient reports that he chews his food well. Occasional dysphagia without odynophagia with patient denies any dyspepsia. He continues to take pantoprazole every morning. Only takes famotidine as needed that may be couple times a month or so. Currently patient reports that he is constipated, reports ribbon like stools. Colonoscopy last May showed moderate hemorrhoids and moderate diverticulosis in the sigmoid colon. Patient is not taking any fiber supplement. Tried increasing fiber in his diet. Patient reports that he will occasionally have oatmeal for breakfast. 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 Alcohol intake: current Alcohol intake frequency: 0-2 drinks per day Patient Tobacco Use Status: Never used Tobacco e-Cigarette/Vaping Use: Never Used service: No Current occupational status: employed 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, 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 Cognitive needs: No Hearing needs: No Vision needs: Yes Review of Systems Const Denies weight gain and Denies weight loss ENT Reports no additional complaints, Reports dysphagia (Infrequent) and Denies odynophagia Card Reports no additional complaints Resp Reports no additional complaints GI Denies abdominal pain, Denies belching, Denies melena, Reports bloating, Denies change in bowel habits, Reports constipation, Reports dysphagia (Infrequent), Denies excessive flatus, Denies dyspepsia, Reports heartburn, Denies diarrhea, Denies loose stools, Denies nausea, Denies odynophagia and Denies vomiting Reports no additional complaints Musc Reports no additional complaints Neuro Reports no additional complaints Psych Reports no additional complaints Endo Reports no additional complaints Physical Exam Vital Signs: Last Vital Signs Pulse 86 02/10/25 09:07 BP 130/86 02/10/25 09:07 Pulse Ox 93 02/10/25 09:07 Oxygen Delivery Method Room Air 02/10/25 09:07 BMI result Body Mass Index 29.1 Const General: healthy appearing, no acute distress and well developed Nutritional Appearance: well nourished Orientation/consciousness: patient oriented x3 Resp Effort & Inspection: normal respiratory effort, able to speak in complete sentences, no tracheal deviation and symmetric chest movement Auscultation: clear to auscultation bilaterally Cardio Rate: regular rate GI Inspection: Yes normal to inspection and No distended Palpation (GI): Soft to palpation, not firm, nontender and No hepatosplenomegaly present Auscultation: normal bowel sounds General: Yes no CVA tenderness Back/Spine/Pelvis Back: no CVA tenderness Skin General skin exam: elasticity normal, turgor normal and dry skin Neuro General: patient oriented x3 Psych Appearance: grossly normal Mental Status: mental status grossly normal Assessment & Plan Assessment & Plan (1) Hx of colonoscopy: Onset Date: ~04/2023 Code(s): Z98.890 - Other specified postprocedural states Category: Surgical (2) Schatzki's ring: Code(s): K22.2 - Esophageal obstruction Category: Medical (3) GERD (gastroesophageal reflux disease): Code(s): K21.9 - Gastro-esophageal reflux disease without esophagitis Category: Medical Qualifiers: Esophagitis presence: esophagitis presence not specified Qualified Code(s): K21.9 - Gastro-esophageal reflux disease without esophagitis (4) Constipation: Code(s): K59.00 - Constipation, unspecified Qualifiers: Constipation type: slow transit constipation Qualified Code(s): K59.01 - Slow transit constipation Plan Patient will continue taking pantoprazole. Avoid dietary triggers in late night snacking. Staying upright for minimal 3 hours after meals discussed with patient. Patient will be sent for upper endoscopy for possible dilation. Reports dysphagia. Patient will increase fiber in his diet. Patient was also recommended to take fiber supplement daily to have bulk stools. Take Senokot in the evening. May use Proctosol to help with hemorrhoids. Patient will be seen in the office after the procedure. He is agreeable to this plan and verbalizes understanding of instructions. He was given the opportunity to ask questions and all questions answered. Thank you for allowing me to participate in his care Orders: Referrals GI Procedure Notification R13.10 - Dysphagia, unspecified Medications: New hydrocortisone 2.5% (Proctosol HC) 1 appl VT BID-QID PRN 30 grams 2RF hemorrhoids K64.9 - Unspecified hemorrhoids Coding Level of Care Code Est Pt Level 4 (94804) Complex visit Add On G2211 Diagnoses Hx of colonoscopy Z98.890 Schatzki's ring K22.2 Gastroesophageal reflux disease, unspecified whether esophagitis present K21.9 Esophagitis presence: esophagitis presence not specified Slow transit constipation K59.01 Constipation type: slow transit constipation Time Spent (min) 35 Comment 25 minutes spent with patient and additional 10 minutes spent reviewing his records
[2025-02-10 09:07] VITALS: BP 130/86; PULSE 86; O2SAT 93; BMI 29.1
== END 2025-02-10 09:53 | disposition home or self-care (01) ==
LOC: HO.HGI 08:59
PROVIDERS: PCP Internal Medicine; Visit Provider Nurse Practitioner Family
DX: Z98.890 Other specified postprocedural states (principal); K22.2 Esophageal obstruction; K21.9 Gastro-esophageal reflux disease without esophagitis; K59.01 Slow transit constipation
CPT/HCPCS: 99214